=== PATIENT | male | born 1940 | race Caucasian/White ===

== ENCOUNTER 2023-06-15 14:48 | Outpatient (AMB) | payer MEDICARE, SELFPAY ==
--- NOTE | 2023-06-15 14:56 | MHC.OFFVIS ---
Intake Vital Signs 06/15/23 14:58 Height 5 ft 11 in Weight 175 lb BMI 24.4 BP 116/68 Blood Pressure Location Lt brachial Position Sitting Pulse 104 H Pulse Source Pulse Oximeter Pulse Oximetry (%) 96 Oxygen Delivery Method Room Air Intake Visit Reasons: Asthma Checkroom Chief Required: No Organic Chemistry Teacher: Organic Chemistry Teacher offered & declined Accompanied by: home energy inspector Allergies Penicillins Allergy (Severe, Verified 06/15/23 15:07) unknown peanuts Allergy (Severe, Uncoded 06/15/23 15:07) Anaphylaxis HPI Asthma HPI Details Jose is a pleasant 83 year old male, never smoker, with underlying asthma since childhood, prostate cancer s/p prostatectomy and bilateral orchiectomy 2007 and chronic alcoholism in remission since 2020. He was referred by PCP for pulmonary evaluation for worsening asthma control. He reports progressively worsening dyspnea on minimal exertion and has been using albuterol multiple times per day with partial relief. He has been on advair 500 for years and feels is no longer beneficial. He has been using a pulse oximeter and getting readings in the low 80s at rest. He reports being admitted to [facility] last year being discharged on supplemental oxygen but was discontinued shortly after discharge, unclear reasoning. Over the last three weeks he reports worsening orthopnea, having to sleep in his recliner. His aide reports more prevalent BLE. He denies PND. He denies any chest pain, palpitations or prior cardiac conditions. He does attribute some of his dyspnea to increased anxiety. He was admitted to [facility] and discharged on 06/12 with a course of prednisone, however has had issues obtaining from pharmacy and will be starting tonight. Chest CTA unremarkable. He denies any occupational exposures. He reports mild seasonal allergies. Denies any pertinent family history. [facility] Social History (Updated 06/15/23 @ 15:09 by Mis Barajas LPN) Patient Tobacco Use Status: Never used Tobacco Smoked in Last 30 Days: No Review of Systems Const Denies chills, Denies excessive sweating, Denies fever(s), Denies headache(s) and Denies night sweats Eyes Denies dry eyes, Denies irritation and Denies itchy eyes ENT Reports Normal hearing present, Denies headache(s), Denies nasal congestion, Denies nasal discharge, Denies post nasal drip and Denies sore throat Card Denies chest pain, Denies chest pain at rest, Denies chest pain with activity, Denies claudication, Denies leg edema, Denies palpitations, Reports dyspnea, Reports dyspnea on exertion, Reports orthopnea and Denies paroxysmal nocturnal dyspnea Resp Denies chest congestion, Reports cough (intermittent dry cough), Denies excessive phlegm production, Denies pain on inspiration, Denies pain with cough, Reports dyspnea, Reports dyspnea on exertion, Denies stridor and Denies wheezing Musc Denies myalgias Neuro Reports Normal hearing present and Denies headache(s) Endo Denies excessive sweating and Denies palpitations Joseph/Lymph Denies lymphadenopathy Aller/Immun Denies itchy eyes, Denies seasonal rhinorrhea and Denies wheezing Physical Exam Vital Signs: Last Vital Signs Pulse 104 H 06/15/23 14:58 BP 116/68 06/15/23 14:58 Pulse Ox 96 06/15/23 14:58 Oxygen Delivery Method Room Air 06/15/23 14:58 BMI result Body Mass Index 24.4 Const General: cooperative, comfortable, no acute distress and alert Nutritional Appearance: thin Orientation/consciousness: patient oriented x3 Limitations: no limitations HEENT Head: Yes normal to inspection, Yes normocephalic and Yes atraumatic Ears: hearing grossly normal bilaterally and external ears normal Eyes General: appearance normal, both eyes and all related structures Eyelids: Yes eyelids normal Sclerae: sclerae normal EOM: EOMs intact bilaterally Neck Neck: Yes normal visual inspection and Yes no lymphadenopathy Lymphatic: no lymphadenopathy noted Chest Chest palpation & inspection: normal inspection of the chest Resp Other: diminished lung sounds bilaterally Effort & Inspection: normal respiratory effort, able to speak in complete sentences, no audible wheezes, no cough, no stridor, not tachypneic, no tripod positioning and no use of accessory muscles Auscultation: no wheezes Cardio Jugular venous distension: no JVD Rate: regular rate Rhythm: regular rhythm Skin Other: warm, dry General skin exam: no rashes or lesions noted Neuro General: patient oriented x3 Cranial nerves: Yes Normal hearing present Cognition (Neuro): normal cognition Gait exam (Neuro): Normal gait present Extrem Other: 1+ BLE, L>R General: Yes normal to inspection, Yes capillary refill normal, Yes no clubbing, cyanosis or edema and Yes no pedal edema Psych Appearance: grossly normal and well kempt Speech and movement: Normal speech and movement present and Clear speech present Affect: normal affect Attitude: cooperative Thought process: Normal thought process present Thought content: Normal thought content present Insight: Good insight present (Psych) Judgement: Good judgement present (Psych) Office Procedures 6 Minute Walk Time:: 15:35 SPO2 % at rest: 93 Pulse at rest: 100 SPO2 % during excercise: 93 Pulse during excercise: 138 SPO2 % after excercise: 96 Pulse after excercise: 111 Distance in yards walked: 250 Bhavana Score: 8 Performance Observations:: Patient walked without assistance on flat ground. After approx 200 yards O2 saturation maintained at 93% but pulse rate was up to 138 and patient was tired with shortness of breath. Patient sat and rested for 2-3 minutes. O2 saturation 96% and pulse rate 112.Walk resumed and after approx 50 yards O2 saturation was 95% and pulse rate 128. Patient was tired and felt short of breath. Unable to resume walk. Patient did not meet the criteria for supplemental O2. 47729 - 6 Minute Walk Assessment & Plan Assessment & Plan (1) Asthma: Code(s): J45.909 - Unspecified asthma, uncomplicated (2) Dyspnea: Code(s): R06.00 - Dyspnea, unspecified Plan Edward's symptoms are likely multifactorial with contribution from pulmonary, cardiac and deconditioning etiologies. Will switch Advair to Trelegy. Inhaler technique reviewed. 6MWT performed and patient maintained adequate oxygen saturation, however became tachycardic, max 138, reporting labored breathing. Will send for echo given tachycardia with 6MWT, BLE on exam and worsening orthopnea. Will consider spirometry at next visit, if patient able to perform. All questions were answered and patient is in agreement of plan. Will follow up after echo to review results and response to Trelegy. Orders: Orders CA echo transthoracic complete Today R06.00 - Dyspnea, unspecified AMB 6 minute walk Today R06.00 - Dyspnea, unspecified Medications: New cizhpqizwar-hytxuveka-weuccrnw 200-62.5-25 mcg (Trelegy Ellipta) 1 inh inhalation DAILY 60 ea 3RF Coding Level of Care Code New Pt Level 4 (61747) Diagnoses Asthma J45.909 Dyspnea R06.00 CPT Codes Coding ([id number])
[2023-06-15 14:58] VITALS: BP 116/68; PULSE 104; O2SAT 96; BMI 24.4
[2023-06-15 16:22] VITALS: PULSE 100; O2SAT 93
== END 2023-06-15 16:24 | disposition home or self-care (01) ==
PROVIDERS: PCP Nurse Practitioner Primary Care; Referring Provider Nurse Practitioner Primary Care; Visit Provider Nurse Practitioner Family
DX: J45.909 Unspecified asthma, uncomplicated (principal); R06.00 Dyspnea, unspecified
CPT/HCPCS: 94618; 99204

== ENCOUNTER → 2023-06-15 14:48 | Outpatient (BNVA) | payer MEDICARE, SELFPAY | PROVIDERS: PCP Nurse Practitioner Primary Care; Referring Provider Nurse Practitioner Primary Care; Visit Provider Nurse Practitioner Family | DX: J45.909 Unspecified asthma, uncomplicated (principal); R06.00 Dyspnea, unspecified | CPT/HCPCS: 94618; 99202 ==

== ENCOUNTER → 2023-07-04 12:29 | Outpatient (REF) | payer MEDICARE, SELFPAY ==
--- NOTE | 2023-07-04 12:42 | CA_ITS ---
Transthoracic Echocardiogram Patient (Last, First, Middle): Jose Jacob E Gender: Male Date of : 1940 Age: 83 Procedure Date: 07/04/2023 Procedure Type: Transthoracic Echocardiogram Location: OP Height: 180.34 cm Weight: 79.38 kg BSA: 1.99 m2 Heart Rate: 93 bpm BP: 118 / 70 mmHg Internet Programmer: SB Referring MD: Bailee Jacobsen NP Symptoms: R06.00 - Dyspnea, unspecified Study Quality: Fair but adequate ECG Rhythm: Sinus Conclusions: - The left ventricular systolic function is normal. The calculated ejection fraction is 65% by biplane method. - No obvious valvular pathology seen on this study. - There is no evidence of pulmonary hypertension. - There is mild dilatation of the ascending aorta measuring 4.00 cm. Findings Procedure Information The quality of the study was fair. The study quality is limited by lung artifact. Left Ventricle Normal left ventricular cavity size. There is normal left ventricular wall thickness. The left ventricular systolic function is normal. The calculated ejection fraction is 65% by biplane method. There is no evidence of regional wall motion abnormalities. Diastolic function is normal for age. Right Ventricle Mildly increased right ventricular cavity size. There is normal right ventricular systolic function. Atria Both atria are normal in size. Aortic Valve There is a normal trileaflet aortic valve. There is no aortic valve stenosis. There is no aortic valve regurgitation. Mitral Valve There is mild anterior mitral leaflet thickening. There is no mitral valve regurgitation. There is no mitral valve stenosis. Pulmonic Valve The pulmonic valve is likely normal. Tricuspid Valve There is trace tricuspid valve regurgitation. There is no evidence of pulmonary hypertension. Great Vessels There is mild dilatation of the ascending aorta measuring 4.00 cm. Small plaque is seen in the sino tubular ridge. Prior Study Comparison No prior study available for comparison. Recommendations, Care & Conclusions No obvious valvular pathology seen on this study. Measurements 2D Linear Measurements IVSd: 0.88 0.6-0.9/0.6-1.0 cm LVIDd: 4.28 3.9-5.3/4.2-5.9 cm LVIDd Index: 2.15 2.4-3.2/2.2-3.1 cm/m2 LVIDs: 2.73 2.0-3.6 cm LVPWd: 0.79 0.7-1.1 cm LA Diam: 3.00 2.7-3.8/3.0-4.0 cm LAIDs Index: 1.51 1.5-2.3 cm/m2 LV Mass: 137.86 67-162/88-224 g LV Mass Index: 69.28 43-95/49-115 g/m2 LVOT Diam: 2.20 3.0+(-)1.3 cm 2D Systolic Function EF 4C: 51.10 >55% EF 2C: 76.00 >55% EF BiP: 64.90 >55% Mitral Valve MV Pk E: 0.54 MV PK A: 1.03 MV Decel Time: 132.00 E/A: 0.50 E'Lateral: 5.11 E'Medial: 7.18 E/E' Med: 7.60 E/E' Lat: 10.60 PHT: 39.00 MVA PHT: 5.64 Decel [place]: 4.12 Aortic Valve AoV Pk Jp: 1.02 AoV Pk Grad: 4.00 ROSANA: 3.51 LVOT LVOT Pk Jp: 0.99 LVOT Mn Jp: 0.63 LVOT VTI: 0.16 LVOT Pk Grad: 4.00 LVOT Mn Grad: 2.00 LVOT Diam: 2.20 LVOT Area: 3.80 Diastolic Function MV Pk E: 0.54 MV Pk A: 1.03 E/A: 0.50 E'Medial: 7.18 E/E' Med: 7.60 E' Laterial: 5.11 E/E' Lat: 10.60 Right Ventricle TAPSE (mm): 20.30 TVS' Jp: 14.30 Tricuspid Valve TR Pk Jp: 2.57 TR Pk Grad: 26.00 Great Vessels Aorta Sinus of Valsalva: 4.10 2.0-3.5 cm Ao Asc: 4.00 2.1-3.4 cm Pulmonary Valve PV Pk Jp: 0.76 Peak PV Grad: 2.00 Updated in Other Vendor System with Status of Final Bran Guerrero MD electronically signed on 07/05/2023 2:49:19 PM with status of Final
== END ==
LOC: HO.CARD 12:29
PROVIDERS: PCP Nurse Practitioner Primary Care; Visit Provider Nurse Practitioner Family
DX: R06.00 Dyspnea, unspecified (principal)
CPT/HCPCS: 93306

== ENCOUNTER → 2023-07-04 12:42 | Outpatient (BNV) | payer MEDICARE, SELFPAY | PROVIDERS: PCP Nurse Practitioner Primary Care; Visit Provider Internal Medicine | DX: I34.89 Other nonrheumatic mitral valve disorders (principal); R06.00 Dyspnea, unspecified | CPT/HCPCS: 93306 ==

== ENCOUNTER 2023-07-19 09:32 | Outpatient (AMB) | payer MEDICARE, SELFPAY ==
[2023-07-19 09:43] VITALS: BP 120/70; PULSE 99; O2SAT 94; BMI 25.0
--- NOTE | 2023-07-19 09:43 | A.OFFVIS_ITS ---
Intake Vital Signs 07/19/23 09:43 Height 5 ft 11 in Weight 179 lb BMI 25.0 BP 120/70 Blood Pressure Location Lt brachial Position Sitting Pulse 99 Pulse Source Pulse Oximeter Pulse Oximetry (%) 94 Oxygen Delivery Method Room Air Intake Visit Reasons: dyspnea: echo results Library Technician Required: No Beauty School Instructor: Beauty School Instructor offered & declined Accompanied by: head of strategy Allergies Penicillins Allergy (Severe, Verified 07/19/23 09:48) unknown peanuts Allergy (Severe, Uncoded 07/19/23 09:48) Anaphylaxis Medication List - Last Reconciled 07/19/23 by Mis Barajas LPN nfqoezunapk-shetcuauz-hcmymkry 200-62.5-25 mcg (Trelegy Ellipta) 1 inh inhalation DAILY lorazepam 0.5 mg PO BID PRN HPI dyspnea: echo results HPI Details Jose is a pleasant 83 year old male, never smoker, with underlying asthma since childhood, prostate cancer s/p prostatectomy and bilateral orchie ctomy 2007 and chronic alcoholism in remission since 2020. He was referred by PCP for pulmonary evaluation for worsening asthma control. At the last visit, he was switched from Advair to Trelegy and reports minimal use of albuterol. He denies cough, wheezing or chest tightness. He continues to report dyspnea on exertion. Today he presents to review results of echo. [facility] Social History (Updated 07/19/23 @ 09:50 by Mis Barajas LPN) Patient Tobacco Use Status: Never used Tobacco Review of Systems Const Denies chills, Denies excessive sweating, Denies fever(s), Denies headache(s) and Denies night sweats Eyes Denies dry eyes, Denies irritation and Denies itchy eyes ENT Reports Normal hearing present, Denies headache(s), Denies nasal congestion, Denies nasal discharge, Denies post nasal drip and Denies sore throat Card Denies chest pain, Denies chest pain at rest, Denies chest pain with activity, Denies claudication, Denies leg edema, Denies orthopnea and Denies paroxysmal nocturnal dyspnea Resp Denies chest congestion, Denies cough, Denies excessive phlegm production, Denies pain on inspiration, Denies pain with cough and Denies stridor Musc Denies myalgias Neuro Reports Normal hearing present and Denies headache(s) Endo Denies excessive sweating Joseph/Lymph Denies lymphadenopathy Aller/Immun Denies itchy eyes and Denies seasonal rhinorrhea Physical Exam Vital Signs: Last Vital Signs Pulse 99 07/19/23 09:43 BP 120/70 07/19/23 09:43 Pulse Ox 94 07/19/23 09:43 Oxygen Delivery Method Room Air 07/19/23 09:43 BMI result Body Mass Index 25.0 Const General: cooperative, healthy appearing, comfortable, no acute distress, well developed and alert Orientation/consciousness: patient oriented x3 Limitations: no limitations HEENT Head: Yes normal to inspection, Yes normocephalic and Yes atraumatic Ears: hearing grossly normal bilaterally and external ears normal Eyes General: appearance normal, both eyes and all related structures Eyelids: Yes eyelids normal Sclerae: sclerae normal EOM: EOMs intact bilaterally Neck Neck: Yes normal visual inspection and Yes no lymphadenopathy Lymphatic: no lymphadenopathy noted Chest Chest palpation & inspection: normal inspection of the chest Resp Other: faint expiratory wheezes throughout Effort & Inspection: normal respiratory effort, able to speak in complete sentences, no audible wheezes, no cough, no stridor, not tachypneic, no tripod positioning and no use of accessory muscles Cardio Jugular venous distension: no JVD Rate: regular rate Rhythm: regular rhythm Skin Other: warm, dry General skin exam: no rashes or lesions noted Neuro General: patient oriented x3 Cranial nerves: Yes Normal hearing present Cognition (Neuro): normal cognition Gait exam (Neuro): Normal gait present Extrem General: Yes normal to inspection, Yes capillary refill normal, Yes no clubbing, cyanosis or edema and Yes no pedal edema Psych Appearance: grossly normal and well kempt Speech and movement: Normal speech and movement present and Clear speech present Affect: normal affect Attitude: cooperative Thought process: Normal thought process present Thought content: Normal thought content present Insight: Good insight present (Psych) Judgement: Good judgement present (Psych) Results Reviewed Results Reviewed: [address] [address] Cardiology Report Signed Patient: Jose Jacob MR#: [id number] : 1940 Acct:[id number] Age/Sex: 83 / M ADM Date: 07/04/23 Loc: HO.CARD Attending Dr: Bailee Jacobsen CREATIVE SERVICES MANAGER Ordering Physician: Bailee Jacobsen NP Date of Service: 07/04/23 Procedure(s): CA echo transthoracic complete Accession Number(s): cc: Bailee Jacobsen CREATIVE SERVICES MANAGER~ Transthoracic Echocardiogram Patient (Last, First, Middle): Jose Jacob E Gender: Male Date of : 1940 Age: 83 Procedure Date: 07/04/2023 Procedure Type: Transthoracic Echocardiogram Location: OP Height: 180.34 cm Weight: 79.38 kg BSA: 1.99 m2 Heart Rate: 93 bpm BP: 118 / 70 mmHg Stoker Erector: HILDA Referring MD: Bailee Jacobsen NP Symptoms: R06.00 - Dyspnea, unspecified Study Quality: Fair but adequate ECG Rhythm: Sinus Conclusions: - The left ventricular systolic function is normal. The calculated ejection fraction is 65% by biplane method. - No obvious valvular pathology seen on this study. - There is no evidence of pulmonary hypertension. - There is mild dilatation of the ascending aorta measuring 4.00 cm. Findings Procedure Information The quality of the study was fair. The study quality is limited by lung artifact. Left Ventricle Normal left ventricular cavity size. There is normal left ventricular wall thickness. The left ventricular systolic function is normal. The calculated ejection fraction is 65% by biplane method. There is no evidence of regional wall motion abnormalities. Diastolic function is normal for age. Right Ventricle Mildly increased right ventricular cavity size. There is normal right ventricular systolic function. Atria Both atria are normal in size. Aortic Valve There is a normal trileaflet aortic valve. There is no aortic valve stenosis. There is no aortic valve regurgitation. Mitral Valve There is mild anterior mitral leaflet thickening. There is no mitral valve regurgitation. There is no mitral valve stenosis. Pulmonic Valve The pulmonic valve is likely normal. Tricuspid Valve There is trace tricuspid valve regurgitation. There is no evidence of pulmonary hypertension. Great Vessels There is mild dilatation of the ascending aorta measuring 4.00 cm. Small plaque is seen in the sino tubular ridge. Prior Study Comparison No prior study available for comparison. Recommendations, Care & Conclusions No obvious valvular pathology seen on this study. Measurements 2D Linear Measurements IVSd: 0.88 0.6-0.9/0.6-1.0 cm LVIDd: 4.28 3.9-5.3/4.2-5.9 cm LVIDd Index: 2.15 2.4-3.2/2.2-3.1 cm/m2 LVIDs: 2.73 2.0-3.6 cm LVPWd: 0.79 0.7-1.1 cm LA Diam: 3.00 2.7-3.8/3.0-4.0 cm LAIDs Index: 1.51 1.5-2.3 cm/m2 LV Mass: 137.86 67-162/88-224 g LV Mass Index: 69.28 43-95/49-115 g/m2 LVOT Diam: 2.20 3.0+(-)1.3 cm 2D Systolic Function EF 4C: 51.10 >55% EF 2C: 76.00 >55% EF BiP: 64.90 >55% Mitral Valve MV Pk E: 0.54 MV PK A: 1.03 MV Decel Time: 132.00 E/A: 0.50 E'Lateral: 5.11 E'Medial: 7.18 E/E' Med: 7.60 E/E' Lat: 10.60 PHT: 39.00 MVA PHT: 5.64 Decel [place]: 4.12 Aortic Valve AoV Pk Jp: 1.02 AoV Pk Grad: 4.00 ROSANA: 3.51 LVOT LVOT Pk Jp: 0.99 LVOT Mn Jp: 0.63 LVOT VTI: 0.16 LVOT Pk Grad: 4.00 LVOT Mn Grad: 2.00 LVOT Diam: 2.20 LVOT Area: 3.80 Diastolic Function MV Pk E: 0.54 MV Pk A: 1.03 E/A: 0.50 E'Medial: 7.18 E/E' Med: 7.60 E' Laterial: 5.11 E/E' Lat: 10.60 Right Ventricle TAPSE (mm): 20.30 TVS' Jp: 14.30 Tricuspid Valve TR Pk Jp: 2.57 TR Pk Grad: 26.00 Great Vessels Aorta Sinus of Valsalva: 4.10 2.0-3.5 cm Ao Asc: 4.00 2.1-3.4 cm Pulmonary Valve PV Pk Jp: 0.76 Peak PV Grad: 2.00 Updated in Other Vendor System with Status of Final Bran Guerrero MD electronically signed on 07/05/2023 2:49:19 PM with status of Final Dictated By: Bran Guerrero MD Signed By: <Electronically signed by Bran Guerrero MD in OV> 07/05/23 1449 DD/ 1302 TD/TT: Pet Caretaker: Assessment & Plan Assessment & Plan (1) Asthma: Code(s): J45.909 - Unspecified asthma, uncomplicated (2) Dyspnea: Code(s): R06.00 - Dyspnea, unspecified Plan Edward has had significant improvements overall using Trelegy. Advised to continue. On exam today, faint wheezing appreciated, will send in prednisone. Patient is aware if symptoms increase to call office. We discussed spirometry but patient deferred at this time. Reviewed echo which revealed LVEF 65%, no obvious valvular pathology or evidence of pulmonary hypertension. There was however mild dilatation of the ascending aorta measuring 4 cm , will enter vascular referral. All questions were answered and patient is in agreement of plan. Will follow up in three months or sooner if needed. Orders: Referrals Vascular Surgery Referral I77.819 - Aortic ectasia, unspecified site Medications: New prednisone 40 mg (2 x 20 mg) PO DAILY 10 tabs 0RF Refilled zjmowkvzohb-nzzxfxmqz-dwuyegog 200-62.5-25 mcg (Trelegy Ellipta) 1 inh inhalation DAILY 60 ea 3RF Coding Level of Care Code Est Pt Level 4 (59506) Diagnoses Asthma J45.909 Dyspnea R06.00
== END 2023-07-19 10:19 | disposition home or self-care (01) ==
PROVIDERS: PCP Nurse Practitioner Primary Care; Visit Provider Nurse Practitioner Family
DX: J45.909 Unspecified asthma, uncomplicated (principal); R06.00 Dyspnea, unspecified
CPT/HCPCS: 99214

== ENCOUNTER → 2023-07-19 09:32 | Outpatient (BNVA) | payer MEDICARE, SELFPAY | PROVIDERS: PCP Nurse Practitioner Primary Care; Visit Provider Nurse Practitioner Family | DX: J45.909 Unspecified asthma, uncomplicated (principal); R06.00 Dyspnea, unspecified | CPT/HCPCS: 99212 ==

== ENCOUNTER 2023-10-19 10:02 | Outpatient (AMB) | payer MEDICARE, SELFPAY ==
[2023-10-19 10:21] VITALS: BP 120/68; PULSE 94; O2SAT 98; BMI 25.8
--- NOTE | 2023-10-19 10:21 | MHC.OFFVIS ---
Vital Signs 10/19/23 10:21 Height 5 ft 11 in Weight 185 lb BMI 25.8 BP 120/68 Blood Pressure Location Lt brachial Position Sitting Pulse 94 Pulse Source Monitor Pulse Oximetry (%) 98 Oxygen Delivery Method Room Air Intake Visit Reasons: NPV/Aortic ectasia Allergies Penicillins Allergy (Severe, Verified 07/19/23 09:48) unknown peanuts Allergy (Severe, Uncoded 07/19/23 09:48) Anaphylaxis Medication List - Last Reconciled 10/19/23 by Bran Guerrero MD albuterol sulfate 90 mcg/actuation inhalation fluoxetine 10 mg PO DAILY qasvyyjcqwp-ttymolroa-quukqkzu 200-62.5-25 mcg (Trelegy Ellipta) 1 inh inhalation DAILY levothyroxine 75 mcg PO DAILY lorazepam 0.5 mg PO BID PRN HPI Comments Details: Jose has been referred because of finding of mild ascending aortic dilatation. Patient himself denies any cardiac history including coronary disease or myocardial infarction or cardiomyopathy or in fact any other cardiac issues. He states that he gets short of breath with activity. He does have a history of asthma but he states he feels this is different. No clear-cut anginal-type symptoms. REPLACED BY [facility] Family History (Updated 10/19/23 @ 10:39 by Bran Guerrero MD) Father No problems noted. Mother No problems noted. Social History (Updated 10/19/23 @ 10:38 by Bran Guerrero MD) Alcohol intake: former Patient Tobacco Use Status: Never used Tobacco Review of Systems Const Denies weakness ENT Denies dizziness Card Denies chest pain, Denies chest pain with activity, Denies syncope, Denies rapid heart rate, Denies pedal edema, Denies edema, Denies leg edema, Denies lightheadedness, Denies palpitations, Denies dyspnea, Denies dyspnea on exertion and Denies orthopnea Resp Denies cough, Denies dyspnea and Denies dyspnea on exertion GI Denies hematochezia and Denies change in stool character Musc Denies abnormal gait, Denies muscle cramps, Denies muscle weakness, Denies numbness, Denies radiating pain into limb and Denies tingling Neuro Denies abnormal gait, Denies dizziness, Denies syncope, Denies numbness, Denies tingling and Denies weakness Endo Denies palpitations Physical Exam Vital Signs: Last Vital Signs Pulse 94 10/19/23 10:21 BP 120/68 10/19/23 10:21 Pulse Ox 98 10/19/23 10:21 Oxygen Delivery Method Room Air 10/19/23 10:21 BMI result Body Mass Index 25.8 Const General: comfortable and no acute distress Orientation/consciousness: patient oriented x3 HEENT Other: Unremarkable Head: Yes normal to inspection Neck Neck: Yes normal visual inspection Chest Chest palpation & inspection: normal inspection of the chest Resp Auscultation: clear to auscultation bilaterally Cardio Palpation: normal PMI Heart sounds: S1 normal heart sound present, S2 normal heart sound present, no gallops, no murmurs and no rubs GI Palpation (GI): Soft to palpation Back/Spine/Pelvis Other: unremarkable Skin General skin exam: no rashes or lesions noted Neuro General: patient oriented x3 Extrem General: Yes normal to inspection Psych Mental Status: mental status grossly normal Office Procedures EKG Details: EKG with sinus rhythm at 94/Min; incomplete right bundle-branch block; right ventricular hypertrophy/repolarization changes. Inverted T-waves in the inferior leads, possible ischemia [id number], Complete Assessment & Plan Assessment & Plan (1) Dyspnea: Code(s): R06.00 - Dyspnea, unspecified Category: Medical Plan: Due to EKG abnormalities, we can get a stress test. Highly unlikely to exercise on the treadmill. Hence do pharmacological stress test with Lexiscan. (2) Aortic dilatation: Code(s): I77.819 - Aortic ectasia, unspecified site Category: Medical Plan: Mild dilatation at 4 cm. Okay to recheck in 1-2 years for measurement. At his age, unlikely that he will ever be a candidate for any interventions even if it gets markedly enlarged. Orders: Orders CA lexiscan stress w jaya Today I20.9 - Angina pectoris, unspecified NM cardiolite stress test Today R07.2 - Precordial pain Coding Level of Care Code New Pt Level 4 (72650) Diagnoses Dyspnea R06.00 Aortic dilatation I77.819 CPT Codes EKG - CPT: 65875-Bvedufbbvhplbqaxb, Complete ([id number])
== END 2023-10-19 10:51 | disposition home or self-care (01) ==
PROVIDERS: PCP Nurse Practitioner Primary Care; Visit Provider Internal Medicine
DX: R06.00 Dyspnea, unspecified (principal); I77.810 Thoracic aortic ectasia; R94.31 Abnormal electrocardiogram [ECG] [EKG]
CPT/HCPCS: 93010; 99214

== ENCOUNTER → 2023-10-19 10:02 | Outpatient (BNVA) | payer MEDICARE, SELFPAY | PROVIDERS: PCP Nurse Practitioner Primary Care; Visit Provider Internal Medicine | DX: I77.819 Aortic ectasia, unspecified site (principal); R06.00 Dyspnea, unspecified; R94.31 Abnormal electrocardiogram [ECG] [EKG]; I51.7 Cardiomegaly; I45.10 Unspecified right bundle-branch block | CPT/HCPCS: 93005; 99212 ==

== ENCOUNTER 2023-10-26 09:48 | Outpatient (AMB) | payer MEDICARE, SELFPAY ==
--- NOTE | 2023-10-26 09:49 | A.OFFVIS_ITS ---
Vital Signs 10/26/23 09:52 Height 5 ft 11 in Weight 185 lb 8 oz BMI 25.9 BP 114/68 Blood Pressure Location Rt brachial Position Sitting Pulse 91 Pulse Source Pulse Oximeter Pulse Oximetry (%) 91 L Oxygen Delivery Method Room Air Intake Visit Reasons: 3 month f/u Allergies Penicillins Allergy (Severe, Verified 10/26/23 09:54) unknown peanuts Allergy (Severe, Uncoded 10/26/23 09:54) Anaphylaxis HPI HPI 3 month f/u: Details: Jose is a pleasant 83 year old male, never smoker, with underlying asthma since childhood, prostate cancer s/p prostatectomy and bilateral orchiectomy 2007 and chronic alcoholism in remission since 2020. He was referred by PCP for pulmonary evaluation for worsening asthma control. He reports moderate control with Trelegy and albuterol MDI. He reports infrequent use of albuterol. He does continue to report dyspnea on exertion and is undergoing cardiac evaluat ion, upcoming stress test scheduled next month. Since last he denies any urgent care visits or hospitalizations. Today he presents for routine follow-up. [facility] Family History (Updated 10/19/23 @ 10:39 by Bran Guerrero MD) Father No problems noted. Mother No problems noted. Social History Alcohol intake: former Patient Tobacco Use Status: Never used Tobacco Review of Systems Const Denies chills, Denies excessive sweating, Denies fever(s), Denies headache(s) and Denies night sweats Eyes Denies dry eyes, Denies irritation and Denies itchy eyes ENT Reports Normal hearing present, Denies headache(s), Denies nasal congestion, Denies nasal discharge, Denies post nasal drip and Denies sore throat Card Denies chest pain, Denies chest pain at rest, Denies chest pain with activity, Denies claudication, Denies leg edema, Denies orthopnea and Denies paroxysmal nocturnal dyspnea Resp Denies chest congestion, Denies cough, Denies excessive phlegm production, Denies pain on inspiration, Denies pain with cough and Denies stridor Musc Denies myalgias Neuro Reports Normal hearing present and Denies headache(s) Endo Denies excessive sweating Joseph/Lymph Denies lymphadenopathy Aller/Immun Denies itchy eyes and Denies seasonal rhinorrhea Physical Exam Vital Signs: Last Vital Signs Pulse 91 10/26/23 09:52 BP 114/68 10/26/23 09:52 Pulse Ox 91 L 10/26/23 09:52 Oxygen Delivery Method Room Air 10/26/23 09:52 BMI result Body Mass Index 25.9 Const General: cooperative, healthy appearing, comfortable, no acute distress, well developed and alert Orientation/consciousness: patient oriented x3 Limitations: no limitations HEENT Head: Yes normal to inspection, Yes normocephalic and Yes atraumatic Ears: hearing grossly normal bilaterally and external ears normal Eyes General: appearance normal, both eyes and all related structures Eyelids: Yes eyelids normal Sclerae: sclerae normal EOM: EOMs intact bilaterally Neck Neck: Yes normal visual inspection and Yes no lymphadenopathy Lymphatic: no lymphadenopathy noted Chest Chest palpation & inspection: normal inspection of the chest Resp Effort & Inspection: normal respiratory effort, able to speak in complete sentences, no audible wheezes, no cough, no stridor, not tachypneic, no tripod positioning and no use of accessory muscles Auscultation: no crackles, no rhonchi, no wheezes and diminished lung sounds Cardio Jugular venous distension: no JVD Rate: regular rate Rhythm: regular rhythm Skin Other: warm, dry General skin exam: no rashes or lesions noted Neuro General: patient oriented x3 Cranial nerves: Yes Normal hearing present Cognition (Neuro): normal cognition Gait exam (Neuro): Normal gait present Extrem General: Yes normal to inspection, Yes capillary refill normal, Yes no clubbing, cyanosis or edema and Yes no pedal edema Psych Appearance: grossly normal and well kempt Speech and movement: Normal speech and movement present and Clear speech present Affect: normal affect Attitude: cooperative Thought process: Normal thought process present Thought content: Normal thought content present Insight: Good insight present (Psych) Judgement: Good judgement present (Psych) Office Procedures 6 Minute Walk Time:: 10:26 SPO2 % at rest: 92 Pulse at rest: 91 SPO2 % during excercise: 92 Pulse during excercise: 135 SPO2 % after excercise: 94 Pulse after excercise: 112 Distance in yards walked: 200 Bhavana Score: 8 Performance Observations:: Patient walked unassisted on level ground slowly. He reports he tires easily while walking and gets short of breath. After approx 3 minutes patient was short of breath and O2 saturation was 92% with pulse rate of 135. Patient needed to stop and rest for a minute..O2 saturation recovered to 94% and pulse to 110. Resumed walk for another minute and O2 sat was 93% and pulse rate to 138. Patient feels shortness of breath and tired. Walk stopped. Patient did not qualify for O2 . [address]00 - 6 Minute Walk Assessment & Plan Assessment & Plan (1) Asthma: Code(s): J45.909 - Unspecified asthma, uncomplicated Category: Medical (2) Dyspnea: Code(s): R06.00 - Dyspnea, unspecified Category: Medical Plan Edward reports moderate control with Trelegy. Advised to continue use and will also send an albuterol for nebulizer. Upon arrival to exam room patient's oxygen saturation was 91%. 6MWT was performed and patient does not need supplemental oxygen at this time. He has an upcoming stress test scheduled with cardiology after abnormal EKG, he may have a cardiac component to dyspnea. Will follow-up in 3 months or sooner if needed. All questions were answered and lisha douglas is in agreement of plan. Orders: Orders AMB 6 minute walk Today J45.909 - Unspecified asthma, uncomplicated, R06.00 - Dyspnea, unspecified Coding Level of Care Code Est Pt Level 4 (67489) Diagnoses Asthma J45.909 Dyspnea R06.00 CPT Codes Coding ([id number])
[2023-10-26 09:52] VITALS: BP 114/68; PULSE 91; O2SAT 91; BMI 25.9
[2023-10-26 10:56] VITALS: PULSE 91; O2SAT 92
== END 2023-10-26 11:00 | disposition home or self-care (01) ==
PROVIDERS: PCP Nurse Practitioner Primary Care; Visit Provider Nurse Practitioner Family
DX: J45.909 Unspecified asthma, uncomplicated (principal); R06.00 Dyspnea, unspecified
CPT/HCPCS: 94618; 99214

== ENCOUNTER → 2023-10-26 09:48 | Outpatient (BNVA) | payer MEDICARE, SELFPAY | PROVIDERS: PCP Nurse Practitioner Primary Care; Visit Provider Nurse Practitioner Family | DX: J45.909 Unspecified asthma, uncomplicated (principal); R06.00 Dyspnea, unspecified; F10.21 Alcohol dependence, in remission | CPT/HCPCS: 94618; 99212 ==

== ENCOUNTER → 2023-12-05 09:54 | Outpatient (REF) | payer MEDICARE, SELFPAY ==
--- NOTE | ~2023-12-05 | NM_ITS ---
Lexiscan Myocardial perfusion study Indication: Abnormal EKG, shortness of breath Technique: The patient was brought in for a Lexiscan perfusion study on 12/05/2023 and was injected 0.4 mg of Lexiscan intravenously. Within a minute of this injection 30 mCi of sestamibi was given intravenously. Images were obtained using the SPECT gamma camera interlaced with the gating device. Images were obtained in supine position. Resting perfusion study was performed on 12/06/2023. Patient was administered 30 mCi of sestamibi intravenously at rest. Images were then obtained in supine position. Images were processed with the software and compared side to side in short axis, horizontal long axis and vertical long axis views. Total DLP 90mGy-cm. Findings: Raw acquisition reviewed. The stress perfusion study showed no significant perfusion abnormality. Both uncorrected as well as CT attenuation corrected images were reviewed. The gated study shows normal LV systolic function with calculated LVEF of > 70%. LV cavity is normal in size. The gated study shows normal wall thickening and contraction of segments. Resting study shows no significant perfusion abnormality. Gating at rest reveals normal wall motion with ejection fraction at 72%. The findings are consistent with no clear reversible or fixed perfusion abnormality. NM/NM cardiolite stress test Impression: 1. Myocardial perfusion imaging study shows likely normal myocardial perfusion. 2. Gated LVEF is > 70% during stress and rest. 3. Transient ischemic dilatation not present. EKG component of the test reported separately.
--- NOTE | 2023-12-05 09:58 | CA_ITS ---
Acquisition Time: 2023-12-05 10:14:11 Total Exercise Time: 00:02:00 Test Indications: Abnormal ECG Medications: Protocol: LEXISCAN Max HR: 107 BPM 79% of Pred: 135 BPM Max BP: 116/074 mmHG Max Work Load: 1.0 METS Pharmacoligcal stress test with Lexiscan injection while sirtting and marching in place, without anginal symptoms, without arrhythmias, with normotensive resposne to injection, with nondiagnoisitic EKGs. Aminophylline 75mg IVP given to reverse Lexiscan. Nuclear images pending. Test reviewed with Dr. Altman Referred By: Bran Guerrero Overread By: Oralia Childers
== END ==
LOC: HO.CARD 09:54
PROVIDERS: PCP Nurse Practitioner Primary Care; Visit Provider Internal Medicine
DX: R07.2 Precordial pain (principal); I20.9 Angina pectoris, unspecified
CPT/HCPCS: 78452; 93017; A9500; J0280; J2785

== ENCOUNTER → 2023-12-05 09:58 | Outpatient (BNV) | payer MEDICARE, SELFPAY | PROVIDERS: PCP Nurse Practitioner Primary Care; Visit Provider Nurse Practitioner | DX: R06.02 Shortness of breath (principal); R94.31 Abnormal electrocardiogram [ECG] [EKG] | CPT/HCPCS: 78452; 93016; 93018 ==

== ENCOUNTER 2024-03-06 09:54 | Outpatient (AMB) | payer MEDICARE, SELFPAY ==
--- NOTE | 2024-03-06 08:36 | A.OFFVIS_ITS ---
Vital Signs 03/06/24 09:55 Height 5 ft 11 in Weight 191 lb BMI 26.6 BP 110/78 Blood Pressure Location Rt brachial Position Sitting Pulse 98 Pulse Source Pulse Oximeter Pulse Oximetry (%) 94 Oxygen Delivery Method Room Air Intake Visit Reasons: dyspnea Allergies Penicillins Allergy (Severe, Verified 03/06/24 09:58) unknown peanuts Allergy (Severe, Uncoded 03/06/24 09:58) Anaphylaxis HPI HPI dyspnea: Details: Jose is a pleasant 84 year old male, never smoker, with underlying asthma since childhood, prostate cancer s/p prostatectomy and bilateral orchiectomy 2007 and chronic alcoholism in remission since 2020. He reports moderate control with Trelegy and albuterol MDI, continues with dyspnea however denies cough, chest tightness or wheezing. He reports infrequent use of albuterol. He did undergo stress test which was unremarkable. Of note, he did stop the Trelegy a few weeks ago and switched to Advair as he is in the donut hole. He denies any worsening of symptoms with use. He denies any visits to urgent care or hospitalizations since the last visit. [facility] Family History (Updated 10/19/23 @ 10:39 by Bran Guerrero MD) Father No problems noted. Mother No problems noted. Social History Alcohol intake: former Patient Tobacco Use Status: Never used Tobacco Review of Systems Const Denies chills, Denies excessive sweating, Denies fever(s), Denies headache(s) and Denies night sweats Eyes Denies dry eyes, Denies irritation and Denies itchy eyes ENT Reports Normal hearing present, Denies headache(s), Denies nasal congestion, Denies nasal discharge, Denies post nasal drip and Denies sore throat Card Denies chest pain, Denies chest pain at rest, Denies chest pain with activity, Denies claudication, Denies leg edema, Reports dyspnea on exertion, Denies orthopnea and Denies paroxysmal nocturnal dyspnea Resp Denies chest congestion, Denies cough, Denies excessive phlegm production, Denies pain on inspiration, Denies pain with cough, Reports dyspnea on exertion and Denies stridor Musc Denies myalgias Neuro Reports Normal hearing present and Denies headache(s) Endo Denies excessive sweating Joseph/Lymph Denies lymphadenopathy Aller/Immun Denies itchy eyes and Denies seasonal rhinorrhea Physical Exam Vital Signs: Last Vital Signs Pulse 98 03/06/24 09:55 BP 110/78 03/06/24 09:55 Pulse Ox 94 03/06/24 09:55 Oxygen Delivery Method Room Air 03/06/24 09:55 BMI result Body Mass Index 26.6 Const General: cooperative, healthy appearing, comfortable, no acute distress, well developed and alert Orientation/consciousness: patient oriented x3 Limitations: no limitations HEENT Head: Yes normal to inspection, Yes normocephalic and Yes atraumatic Ears: hearing grossly normal bilaterally and external ears normal Eyes General: appearance normal, both eyes and all related structures Eyelids: Yes eyelids normal Sclerae: sclerae normal EOM: EOMs intact bilaterally Neck Neck: Yes normal visual inspection and Yes no lymphadenopathy Lymphatic: no lymphadenopathy noted Chest Chest palpation & inspection: normal inspection of the chest Resp Effort & Inspection: normal respiratory effort, able to speak in complete sentences, no audible wheezes, no cough, no stridor, not tachypneic, no tripod positioning and no use of accessory muscles Auscultation: no crackles, no rhonchi, no wheezes and diminished lung sounds Cardio Jugular venous distension: no JVD Rate: regular rate Rhythm: regular rhythm Skin Other: warm, dry General skin exam: no rashes or lesions noted Neuro General: patient oriented x3 Cranial nerves: Yes Normal hearing present Cognition (Neuro): normal cognition Gait exam (Neuro): Normal gait present Extrem General: Yes normal to inspection, Yes capillary refill normal, Yes no clubbing, cyanosis or edema and Yes no pedal edema Psych Appearance: grossly normal and well kempt Speech and movement: Normal speech and movement present and Clear speech present Affect: normal affect Attitude: cooperative Thought process: Normal thought process present Thought content: Normal thought content present Insight: Good insight present (Psych) Judgement: Good judgement present (Psych) Assessment & Plan Assessment & Plan (1) Asthma: Code(s): J45.909 - Unspecified asthma, uncomplicated Category: Medical (2) Dyspnea: Code(s): R06.00 - Dyspnea, unspecified Category: Medical Plan Jose would like to continue with [facility] as he has multiple at home, until the 1st of the year. He is aware to call if symptoms worsen. All questions were answered and patient is in agreement of plan. Will follow-up in 3 months or sooner if needed. Medications: New fluticasone propion-salmeterol 500-50 mcg/dose (Advair Diskus) 1 inh inhalation Q12H 60 ea 3RF Coding Level of Care Code Est Pt Level 3 (96863) Diagnoses Asthma J45.909 Dyspnea R06.00
[2024-03-06 09:55] VITALS: BP 110/78; PULSE 98; O2SAT 94; BMI 26.6
== END 2024-03-06 10:27 | disposition home or self-care (01) ==
PROVIDERS: PCP Nurse Practitioner Primary Care; Visit Provider Nurse Practitioner Family
DX: J45.909 Unspecified asthma, uncomplicated (principal); R06.00 Dyspnea, unspecified
CPT/HCPCS: 99213

== ENCOUNTER → 2024-03-06 09:54 | Outpatient (BNVA) | payer MEDICARE, SELFPAY | PROVIDERS: PCP Nurse Practitioner Primary Care; Visit Provider Nurse Practitioner Family | DX: J45.909 Unspecified asthma, uncomplicated (principal); R06.00 Dyspnea, unspecified | CPT/HCPCS: 99212 ==

== ENCOUNTER 2024-05-30 09:48 | Outpatient (REF) | payer MEDICARE, SELFPAY ==
--- NOTE | ~2024-05-30 | XR_ITS ---
EXAMINATION: XR CHEST CLINICAL INFORMATION: R05.9 - Cough, unspecified, the patient states doctor heard wheezing noises from the chest. COMPARISON: None available. TECHNIQUE: 3 views of the chest were obtained. FINDINGS: There is marked asymmetric elevation of the right lung base with multiple distended air-filled loops of bowel, obscuring the right hilum and right heart border. Correlation with clinical exam and possible dedicated imaging of the abdomen recommended to determine further management. Streaky opacities in the lingula/left lung base. Mild bilateral upper paramediastinal streaky opacities. There is no gross pneumothorax. Moderate left and possible right pleural effusion. Degenerative changes in the thoracic spine. XR/XR chest 2V IMPRESSION: Marked asymmetric elevation of the right lung base with multiple distended air-filled loops of bowel, obscuring the right hilum and right heart border. Correlation with clinical exam and possible dedicated imaging of the abdomen recommended to determine further management. Streaky opacities in the lingula/left lung base. Moderate pleural effusion. Dedicated CT scan of the chest and abdomen recommended for further evaluation. This study was presented today May 30, 2024 for interpretation. Stat results provided at this time as requested by referring provider. Electronically signed by: Carlene Parada MD 05/30/2024 01:04 PM SLAVA
--- OUTSIDE RECORDS SUMMARY | 2024-05-30 10:49 | XMS_ITS | Clinical Summary ---
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 Active 00:00: [...] tablet 01-03 00:00: 01-31 00:00 :00 No [id number] Per instruc tions EVERYDAY Per instructio ns EVERYDAY (route: oral) Med Classific ation: Gastroint estinal Therapy Agents lactulose 10 gram/15 mL oral solution 12-28 00:00: 00 01-31 00:00 :00 No [id number] Per instruc tions TWO TIMES A DAY FOR 10 DAYS Per instructio ns TWO TIMES A DAY FOR 10 DAYS (route: oral) Med Classific ation: Gastroint estinal Therapy Agents folic acid 1 mg tablet 01-30 00:00: 00 01-04 23:59 :00 No [id number] 1 tablet DAILY 1 tablet DAILY (route: oral) Med Classific ation: Electroly te Balance-N utritiona l Products levothyroxi ne 75 mcg tablet 01-30 00:00: 00 01-04 23:59 :00 No [id number] 1 tablet DAILY 1 tablet DAILY (route: oral) Med Classific ation: Endocrine multivitami n tablet 01-30 00:00: 00 01-04 23:59 :00 No [id number] 1 tablet DAILY 1 tablet DAILY (route: oral) Med Classific ation: Electroly te Balance-N utritiona l Products ProAir HFA 90 mcg/actuati on aerosol inhaler 01-30 00:00: 00 01-04 23:59 :00 No [id number] 1 puff EVERY 6 HOURS 1 puff EVERY 6 HOURS (route: inhalation ) Med Classific ation: Respirato ry Therapy Agents thiamine HCl (vitamin B1) 100 mg tablet 01-30 00:00: 00 01-04 23:59 :00 No [id number] 1 tablet DAILY 1 tablet DAILY (route: oral) Med Classific ation: Electroly te Balance-N utritiona l Products tramadol 50 mg tablet 01-30 00:00: 00 01-04 23:59 :00 No [id number] 1 tablet EVERY 4 HOURS 1 tablet EVERY 4 HOURS (route: oral) Med Classific ation: Analgesic , Anti-infl ammatory or Antipyret ic Wixela Inhub 500 mcg-50 mcg/dose powder for inhalation 01-30 00:00: 00 01-04 23:59 :00 No [id number] 1 mcg 2 TIMES DAILY 1 mcg 2 TIMES DAILY (route: inhalation ) Med Classific ation: Respirato ry Therapy Agents fluoxetine 10 mg tablet 2019-06 00:00: 00 01-04 23:59 :00 No [id number] 1 tablet DAILY 1 tablet DAILY (route: [...] FOLLOWING ANY HOSPITAL ADMISSION. ALL DISCIPLINES (EXCEPT TESTER REGULATOR) MAY PROVIDE TELEHEALTH PHONE/REMOTE/VIRTUAL VISITS IN LIEU [...] FOLLOWING ANY HOSPITAL ADMISSION. ALL DISCIPLINES (EXCEPT TESTER REGULATOR) MAY PROVIDE TELEHEALTH PHONE/REMOTE/VIRTUAL VISITS IN LIEU [...] EMERGENCY SERVICES CALL [facility] NURSE TO KEEP SHANK PIECE TACKER SYMPTOM REPORT FOR VISIBLE REFERENCE NOTIFY SKILLED [...] EMERGENCY SERVICES CALL DOTTIE NURSE TO KEEP SHANK PIECE TACKER SYMPTOM REPORT FOR VISIBLE REFERENCE NOTIFY SKILLED [...] PRN VISITS ; PATIENT REQUIRES 3 PRN SHELTER VISITS FOR COMPLICATIONS RELATED TO COLOSTOMY [code = PRN VISITS; PATIENT REQUIRES 3 PRN SHELTER VISITS FOR COMPLICATIONS RELATED TO COLOSTOMY ] [...] End Date/Time Encounter Type Admission Type Attending [facility] Department Encounter ID Discharge Date Discharge Status Discharge Condition Discharge Reason Percent Goals Met 2020-02-01 00:00:00 2020-05-27 00:00:00 Outpatient BRANDINRTTEJAL GARCIA [facility] [id number] 2020-05-27 00:00:00 DISCHARGE TO HOME OR SELF CARE INDEPENDEN T IN THE HOME HH OR PAL- GOALS MET 100.00
--- OUTSIDE RECORDS SUMMARY | 2024-05-30 10:50 | XMS_ITS | Clinical Summary ---
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 Active 00:00: [...] tablet 01-03 00:00: 01-31 00:00 :00 No [id number] Per instruc tions EVERYDAY Per instructio ns EVERYDAY (route: oral) Med Classific ation: Gastroint estinal Therapy Agents lactulose 10 gram/15 mL oral solution 12-28 00:00: 00 01-31 00:00 :00 No [id number] Per instruc tions TWO TIMES A DAY FOR 10 DAYS Per instructio ns TWO TIMES A DAY FOR 10 DAYS (route: oral) Med Classific ation: Gastroint estinal Therapy Agents folic acid 1 mg tablet 01-30 00:00: 00 01-04 23:59 :00 No [id number] 1 tablet DAILY 1 tablet DAILY (route: oral) Med Classific ation: Electroly te Balance-N utritiona l Products levothyroxi ne 75 mcg tablet 01-30 00:00: 00 01-04 23:59 :00 No [id number] 1 tablet DAILY 1 tablet DAILY (route: oral) Med Classific ation: Endocrine multivitami n tablet 01-30 00:00: 00 01-04 23:59 :00 No [id number] 1 tablet DAILY 1 tablet DAILY (route: oral) Med Classific ation: Electroly te Balance-N utritiona l Products ProAir HFA 90 mcg/actuati on aerosol inhaler 01-30 00:00: 00 01-04 23:59 :00 No [id number] 1 puff EVERY 6 HOURS 1 puff EVERY 6 HOURS (route: inhalation ) Med Classific ation: Respirato ry Therapy Agents thiamine HCl (vitamin B1) 100 mg tablet 01-30 00:00: 00 01-04 23:59 :00 No [id number] 1 tablet DAILY 1 tablet DAILY (route: oral) Med Classific ation: Electroly te Balance-N utritiona l Products tramadol 50 mg tablet 01-30 00:00: 00 01-04 23:59 :00 No [id number] 1 tablet EVERY 4 HOURS 1 tablet EVERY 4 HOURS (route: oral) Med Classific ation: Analgesic , Anti-infl ammatory or Antipyret ic Wixela Inhub 500 mcg-50 mcg/dose powder for inhalation 01-30 00:00: 00 01-04 23:59 :00 No [id number] 1 mcg 2 TIMES DAILY 1 mcg 2 TIMES DAILY (route: inhalation ) Med Classific ation: Respirato ry Therapy Agents fluoxetine 10 mg tablet 2019-06 00:00: 00 01-04 23:59 :00 No [id number] 1 tablet DAILY 1 tablet DAILY (route: [...] FOLLOWING ANY HOSPITAL ADMISSION. ALL DISCIPLINES (EXCEPT NEIGHBORHOOD WORKER) MAY PROVIDE TELEHEALTH PHONE/REMOTE/VIRTUAL VISITS IN LIEU [...] FOLLOWING ANY HOSPITAL ADMISSION. ALL DISCIPLINES (EXCEPT NEIGHBORHOOD WORKER) MAY PROVIDE TELEHEALTH PHONE/REMOTE/VIRTUAL VISITS IN LIEU [...] EMERGENCY SERVICES CALL [facility] NURSE TO KEEP ENCODING CLERK SYMPTOM REPORT FOR VISIBLE REFERENCE NOTIFY SKILLED [...] EMERGENCY SERVICES CALL DOTTIE NURSE TO KEEP ENCODING CLERK SYMPTOM REPORT FOR VISIBLE REFERENCE NOTIFY SKILLED [...] PRN VISITS ; PATIENT REQUIRES 3 PRN MCC VISITS FOR COMPLICATIONS RELATED TO COLOSTOMY [code = PRN VISITS; PATIENT REQUIRES 3 PRN MCC VISITS FOR COMPLICATIONS RELATED TO COLOSTOMY ] [...] End Date/Time Encounter Type Admission Type Attending [facility] Department Encounter ID Discharge Date Discharge Status Discharge Condition Discharge Reason Percent Goals Met 2020-02-01 00:00:00 2020-05-27 00:00:00 Outpatient BRANDINRTTEJAL GARCIA [facility] [id number] 2020-05-27 00:00:00 DISCHARGE TO HOME OR SELF CARE INDEPENDEN T IN THE HOME HH OR PAL- GOALS MET 100.00
== END 2024-05-30 09:49 | disposition home or self-care (01) ==
LOC: HO.XRAY 09:48
PROVIDERS: PCP Nurse Practitioner Primary Care; Visit Provider Nurse Practitioner Family
DX: R05.9 Cough, unspecified (principal); J45.909 Unspecified asthma, uncomplicated; R06.00 Dyspnea, unspecified
CPT/HCPCS: 71046; 99212

== ENCOUNTER 2024-05-30 09:48 | Outpatient (AMB) | payer MEDICARE, SELFPAY ==
--- OUTSIDE RECORDS SUMMARY | 2024-05-30 09:50 | XMS_ITS | Clinical Summary ---
Author Organization Unknown Care Team Providers Care Computer Terminal Operator Name Role Phone RICHA ISABELSUZIE ZAVALA Unavailable Unavailherman REYES RN, JACINTA Unavailable Unavailable MIMI PT, JOSETTE Unavailable Unavailable KARI RN, JAYSON Unavailable Unavailable [place] OT, ELSY Unavailable Unavailable KATHY REYEZ, TEJAL Unavailable Unavailable Payers Payer Name Policy Type Policy Number Effective Date Expira tion Date MEDICARE.NGS.PDGM [id number] Problems Condition Name Condition Details Condition Category Status Onset Date Resolution Date Last Treatment Date Treating Clinician Comments ENCNTR FOR SURGICAL AFTCR FOLLOWING SURGERY ON THE DGSTV SYS Active 01-31 00:00: 00 ENCOUNTER FOR ATTENTION TO ILEOSTOMY Active 01-31 00:00: 00 UNSPECIFIED PROTEIN-ARSLAN LYNDON MALNUTRITION Active 01-23 00:00: 00 CHRONIC OBSTRUCTIVE PULMONARY DISEASE, UNSPECIFIED Active 06-13 00:00: 00 ESSENTIAL (PRIMARY) HYPERTENSION Active 06-13 00:00: 00 ALCOHOL ABUSE, UNCOMPLICATE D Active 01-20 00:00: 00 OTH SYMPTOMS AND SIGNS W COGNITIVE FUNCTIONS AND AWARENESS Active 8 00:00: 00 HYPOTHYROIDI SM, UNSPECIFIED Active - 00:00: 00 NONTOXIC SINGLE THYROID NODULE Active - 00:00: 00 ELEVATED WHITE BLOOD CELL COUNT, UNSPECIFIED Active 8 00:00: 00 HISTORY OF FALLING Active - 00:00: 00 ACQUIRED ABSENCE OF OTHER SPECIFIED PARTS OF DIGESTIVE TRACT Active 8 00:00: 00 PERSONAL HISTORY OF MALIGNANT NEOPLASM OF PROSTATE Active - 00:00: 00 PERSONAL HISTORY OF (HEALED) TRAUMATIC FRACTURE Active 2017-06 1- 00:00: 00 [employer] (CURRENT) USE OF INHALED STEROIDS Active 00:00: 00 Allergies, Adverse Reactions, Alerts Allergy Name Allergy Type Status Severity Reaction(s) Onset Date Inactive Date Treating Clinician Comments PENICILLINS Propensity to adverse reactions Active 02-01 10:32: 11 Medications Ordered Medication Name Filled Medication Name Start Date Stop Date Current Medication? Ordering Clinician Indication Dosage Frequency Signature (SIG) Comments Components Stimulant Laxative Plus 8.6 mg-50 mg tablet 01-03 00:00: 01-31 00:00 :00 No [id number] Per instruc tions EVERYDAY Per instructio ns EVERYDAY (route: oral) Med Classific ation: Gastroint estinal Therapy Agents lactulose 10 gram/15 mL oral solution 12-28 00:00: 00 01-31 00:00 :00 No [id number] Per instruc tions TWO TIMES A DAY FOR 10 DAYS Per instructio ns TWO TIMES A DAY FOR 10 DAYS (route: oral) Med Classific ation: Gastroint estinal Therapy Agents folic acid 1 mg tablet 01-30 00:00: 00 01-04 23:59 :00 No [id number] 1 tablet DAILY 1 tablet DAILY (route: oral) Med Classific ation: Electroly te Balance-N utritiona l Products levothyroxi ne 75 mcg tablet 01-30 00:00: 00 01-04 23:59 :00 No [id number] 1 tablet DAILY 1 tablet DAILY (route: oral) Med Classific ation: Endocrine multivitami n tablet 01-30 00:00: 00 01-04 23:59 :00 No [id number] 1 tablet DAILY 1 tablet DAILY (route: oral) Med Classific ation: Electroly te Balance-N utritiona l Products ProAir HFA 90 mcg/actuati on aerosol inhaler 01-30 00:00: 00 01-04 23:59 :00 No [id number] 1 puff EVERY 6 HOURS 1 puff EVERY 6 HOURS (route: inhalation ) Med Classific ation: Respirato ry Therapy Agents thiamine HCl (vitamin B1) 100 mg tablet 01-30 00:00: 00 01-04 23:59 :00 No [id number] 1 tablet DAILY 1 tablet DAILY (route: oral) Med Classific ation: Electroly te Balance-N utritiona l Products tramadol 50 mg tablet 01-30 00:00: 00 01-04 23:59 :00 No [id number] 1 tablet EVERY 4 HOURS 1 tablet EVERY 4 HOURS (route: oral) Med Classific ation: Analgesic , Anti-infl ammatory or Antipyret ic Wixela Inhub 500 mcg-50 mcg/dose powder for inhalation 01-30 00:00: 00 01-04 23:59 :00 No [id number] 1 mcg 2 TIMES DAILY 1 mcg 2 TIMES DAILY (route: inhalation ) Med Classific ation: Respirato ry Therapy Agents fluoxetine 10 mg tablet 2019-06 00:00: 00 01-04 23:59 :00 No [id number] 1 tablet DAILY 1 tablet DAILY (route: oral) Med Classific ation: Central Nervous System Agents Vital Signs Vital Name Observation Time Observation Value Commen ts Temperature 2020-05-27 09:50:32.000 98.8 [degF] Temperature 2020-05-12 12:46:20.000 96.7 [degF] Temperature 2020-04-30 15:41:58.000 96.8 [degF] Temperature 2020-04-17 13:16:56.000 96.8 [degF] Temperature 2020-04-03 15:08:50.000 98.7 [degF] Pulse 2020-05-27 09:51:17.000 68 /min Pulse 2020-05-12 12:46:50.000 74 /min Pulse 2020-04-30 15:42:07.000 74 /min Pulse 2020-04-17 13:28:29.000 80 /min Pulse 2020-04-03 15:09:08.000 76 /min O2 Saturation (%) 2020-05-27 09:53:26.000 95 % O2 Saturation (%) 2020-05-12 12:48:02.000 95 % O2 Saturation (%) 2020-04-30 15:42:42.000 95 % O2 Saturation (%) 2020-04-17 13:17:49.000 93 % O2 Saturation (%) 2020-04-03 15:09:49.000 98 % Respirations 2020-05-27 09:51:32.000 18 /min Respirations 2020-05-12 12:46:57.000 18 /min Respirations 2020-04-30 15:42:12.000 18 /min Respirations 2020-04-17 13:17:15.000 18 /min Respirations 2020-04-03 15:09:17.000 18 /min Systolic Blood Pressure 2020-05-27 09:53:18.000 120 mm [Hg] Systolic Blood Pressure 2020-05-12 12:47:24.000 100 mm [Hg] Systolic Blood Pressure 2020-04-30 15:42:24.000 118 mm [Hg] Systolic Blood Pressure 2020-04-17 13:17:27.000 128 mm [Hg] Systolic Blood Pressure 2020-04-03 15:09:32.000 118 mm [Hg] Diastolic Blood Pressure 2020-05-27 09:53:18.000 76 mm [Hg] Diastolic Blood Pressure 2020-05-12 12:47:24.000 74 mm [Hg] Diastolic Blood Pressure 2020-04-30 15:42:24.000 74 mm [Hg] Diastolic Blood Pressure 2020-04-17 13:17:27.000 74 mm [Hg] Diastolic Blood Pressure 2020-04-03 15:09:32.000 66 mm [Hg] Plan of Treatment Planned Activity Planned Date Details Comments Future Scheduled Test SKILLED NU RSE TO ASSESS, EVALUATE, AND DEVELOP AN INDIVIDUALIZED PLAN OF CARE. AGENCY MAY ACCEPT ORDERS FROM CONSULTING PHYSICIANS DR CHAUDHRY, DR SUMANTH DIAZ SN TO OBSERVE/ASSESS RISK FOR FALLS AND INSTRUCT IN FALL PREVENTION, HOME SAFETY, MEDICATION MANAGEMENT, INFECTION PREVENTION, AND NUTRITION MANAGEMENT. SN MAY PERFORM O2 SATURATION LEVEL ON ADMISSION AND PRN TO ASSESS PATIENT, WITH NOTIFICATION TO THE PHYSICIAN IF SATURATION IS 90% IN THE ABSENCE OF MORE SPECIFIC PARAMETERS FROM THE PHYSICIAN. AGENCY MAY PERFORM A RESUMPTION OF CARE VISIT FOLLOWING ANY HOSPITAL ADMISSION. ALL DISCIPLINES (EXCEPT GAS METER INSTALLER HELPER) MAY PROVIDE TELEHEALTH PHONE/REMOTE/VIRTUAL VISITS IN LIEU OF AN IN-PERSON VISIT THAT DOES NOT REQUIRE HANDS ON OR IN PERSON ASSESSMENT WHEN AN IN-PERSON VISIT IS NOT POSSIBLE DUE TO THE PUBLIC HEALTH EMERGENCY RELATED TO THE COVID-19 PANDEMIC. SKILLED NURSE TO INSTRUCT PATIENT / CAREGIVER ON DISEASE PROCESS, SELF MANAGEMENT, SIGNS AND SYMPTOMS TO REPORT TO SN/PHYSICIAN, RELATED TO: ILEOSTOMY, COPD, FALL RISK, HYPERTENSION [code = SKILLED NURSE TO ASSESS, EVALUATE, AND DEVELOP AN INDIVIDUALIZED PLAN OF CARE. AGENCY MAY ACCEPT ORDERS FROM CONSULTING PHYSICIANS DR CHAUDHRY, DR SUMANTH DIAZ SN TO OBSERVE/ASSESS RISK FOR FALLS AND INSTRUCT IN FALL PREVENTION, HOME SAFETY, MEDICATION MANAGEMENT, INFECTION PREVENTION, AND NUTRITION MANAGEMENT. SN MAY PERFORM O2 SATURATION LEVEL ON ADMISSION AND PRN TO ASSESS PATIENT, WITH NOTIFICATION TO THE PHYSICIAN IF SATURATION IS 90% IN THE ABSENCE OF MORE SPECIFIC PARAMETERS FROM THE PHYSICIAN. AGENCY MAY PERFORM A RESUMPTION OF CARE VISIT FOLLOWING ANY HOSPITAL ADMISSION. ALL DISCIPLINES (EXCEPT GAS METER INSTALLER HELPER) MAY PROVIDE TELEHEALTH PHONE/REMOTE/VIRTUAL VISITS IN LIEU OF AN IN-PERSON VISIT THAT DOES NOT REQUIRE HANDS ON OR IN PERSON ASSESSMENT WHEN AN IN-PERSON VISIT IS NOT POSSIBLE DUE TO THE PUBLIC HEALTH EMERGENCY RELATED TO THE COVID-19 PANDEMIC. SKILLED NURSE TO INSTRUCT PATIENT / CAREGIVER ON DISEASE PROCESS, SELF MANAGEMENT, SIGNS AND SYMPTOMS TO REPORT TO SN/PHYSICIAN, RELATED TO: ILEOSTOMY, COPD, FALL RISK, HYPERTENSION ] Future Scheduled Test MEDICATION MANAGEMENT; SKILLED NURSE TO REVIEW MEDICATIONS FOR INTERACTIONS, EFFECTIVENESS OF DRUG THERAPY, AND SIGNS/SYMPTOMS OF ADVERSE REACTIONS. MAY INSTRUCT AND REINFORCE MEDICATION TEACHING RELATED TO THE USE OF MEDICATIONS, DOSAGE, FREQUENCY, PURPOSE, SIDE EFFECTS, AND TO REPORT COMPLICATIONS. [code = MEDICATION MANAGEMENT; SKILLED NURSE TO REVIEW MEDICATIONS FOR INTERACTIONS, EFFECTIVENESS OF DRUG THERAPY, AND SIGNS/SYMPTOMS OF ADVERSE REACTIONS. MAY INSTRUCT AND REINFORCE MEDICATION TEACHING RELATED TO THE USE OF MEDICATIONS, DOSAGE, FREQUENCY, PURPOSE, SIDE EFFECTS, AND TO REPORT COMPLICATIONS.] Future Scheduled Test RISK FOR H OSPITALIZATION; SKILLED NURSE TO INSTRUCT PATIENT/CAREGIVER ON RISK FOR HOSPITALIZATION, TEACH SIGNS AND SYMPTOMS THAT PUT PATIENT AT RISK, WHEN TO NOTIFY NURSE OF COMPLICATIONS/DECLINE, AND WHEN TO CALL 911. SKILLED NURSE TO INSTRUCT PATIENT/CAREGIVER ON: SIGNS AND SYMPTOMS TO BE ON ALERT FOR EARLY INTERVENTION, PRIOR TO NEEDING EMERGENCY SERVICES CALL [facility] NURSE TO KEEP DIAMOND FINISHING SUPERVISOR SYMPTOM REPORT FOR VISIBLE REFERENCE NOTIFY SKILLED NURSE/PHYSICIAN FOR DECLINE IN STATS WHEN AND HOW TO CALL HOME HEALTH AGENCY FACILITATE PHYSICIAN FOLLOW UP APPOINTMENT IDENTIFY SOCIOECONOMIC CONCERNS AND MAKE APPROPRIATE REFERRAL NEEDED IDENTIFY PATIENT GOALS FOR STAYING OUT OF THE HOSPITAL: WANTS TO BE MORE ACT8VE [code = RISK FOR HOSPITALIZATION; SKILLED NURSE TO INSTRUCT PATIENT/CAREGIVER ON RISK FOR HOSPITALIZATION, TEACH SIGNS AND SYMPTOMS THAT PUT PATIENT AT RISK, WHEN TO NOTIFY NURSE OF COMPLICATIONS/DECLINE, AND WHEN TO CALL 911. SKILLED NURSE TO INSTRUCT PATIENT/CAREGIVER ON: SIGNS AND SYMPTOMS TO BE ON ALERT FOR EARLY INTERVENTION, PRIOR TO NEEDING EMERGENCY SERVICES CALL [facility] NURSE TO KEEP DIAMOND FINISHING SUPERVISOR SYMPTOM REPORT FOR VISIBLE REFERENCE NOTIFY SKILLED NURSE/PHYSICIAN FOR DECLINE IN STATS WHEN AND HOW TO CALL HOME HEALTH AGENCY FACILITATE PHYSICIAN FOLLOW UP APPOINTMENT IDENTIFY SOCIOECONOMIC CONCERNS AND MAKE APPROPRIATE REFERRAL NEEDED IDENTIFY PATIENT GOALS FOR STAYING OUT OF THE HOSPITAL: WANTS TO BE MORE ACT8VE] Future Scheduled Test CARDIOVASC ULAR SYSTEM; SKILLED NURSE TO ASSESS AND TEACH RELATED TO ALTERED CARDIOVASCULAR STATUS TO MINIMIZE COMPLICATIONS AND REDUCE HOSPITALIZATION. [code = CARDIOVASCULAR SYSTEM; SKILLED NURSE TO ASSESS AND TEACH RELATED TO ALTERED CARDIOVASCULAR STATUS TO MINIMIZE COMPLICATIONS AND REDUCE HOSPITALIZATION.] Future Scheduled Test RESPIRATOR Y SYSTEM MANAGEMENT; SKILLED NURSE TO ASSESS AND TEACH RELATED TO ALTERED RESPIRATORY STATUS TO MINIMIZE COMPLICATIONS AND REDUCE HOSPITALIZATION. [code = RESPIRATORY SYSTEM MANAGEMENT; SKILLED NURSE TO ASSESS AND TEACH RELATED TO ALTERED RESPIRATORY STATUS TO MINIMIZE COMPLICATIONS AND REDUCE HOSPITALIZATION.] Future Scheduled Test COPD MANAG EMENT; SKILLED NURSE TO ASSESS AND TEACH SIGNS/SYMPTOMS OF COPD EXACERBATION AND PROVIDE EARLY INTERVENTIONS TO MINIMIZE RISK OF HOSPITALIZATION. SKILLED NURSE TO INSTRUCT ON SELF-CARE MANAGEMENT INCLUDING BREATHING TECHNIQUES, AIRWAY CLEARANCE, AND PROPER USE OF COPD MEDICATIONS. ASSESS PATIENT/CAREGIVER ABILITY TO MONITOR AND RECORD VITALS SIGNS INCLUDING PULSE OXIMETRY AND BLOOD PRESSURE. PULSE OXIMETER AND BP MONITOR TO BE PROVIDED IF NEEDED [code = COPD MANAGEMENT; SKILLED NURSE TO ASSESS AND TEACH SIGNS/SYMPTOMS OF COPD EXACERBATION AND PROVIDE EARLY INTERVENTIONS TO MINIMIZE RISK OF HOSPITALIZATION. SKILLED NURSE TO INSTRUCT ON SELF-CARE MANAGEMENT INCLUDING BREATHING TECHNIQUES, AIRWAY CLEARANCE, AND PROPER USE OF COPD MEDICATIONS. ASSESS PATIENT/CAREGIVER ABILITY TO MONITOR AND RECORD VITALS SIGNS INCLUDING PULSE OXIMETRY AND BLOOD PRESSURE. PULSE OXIMETER AND BP MONITOR TO BE PROVIDED IF NEEDED ] Future Scheduled Test PAIN MANAG EMENT; SKILLED NURSE TO OBSERVE, ASSESS, AND PROVIDE EDUCATION ON PAIN MANAGEMENT TECHNIQUES. [code = PAIN MANAGEMENT; SKILLED NURSE TO OBSERVE, ASSESS, AND PROVIDE EDUCATION ON PAIN MANAGEMENT TECHNIQUES.] Future Scheduled Test GASTROINTE STINAL MANAGEMENT; SKILLED NURSE TO ASSESS AND TEACH RELATED TO ALTERED GASTROINTESTINAL STATUS TO MINIMIZE COMPLICATIONS AND REDUCE HOSPITALIZATION. [code = GASTROINTESTINAL MANAGEMENT; SKILLED NURSE TO ASSESS AND TEACH RELATED TO ALTERED GASTROINTESTINAL STATUS TO MINIMIZE COMPLICATIONS AND REDUCE HOSPITALIZATION.] Future Scheduled Test COLOSTOMY/ ILEOSTOMY TEACHING/MANAGEMENT; SKILLED NURSE TO INSTRUCT PATIENT/CAREGIVER ON ILEOSTOMY MANAGEMENT INCLUDING APPLIANCE TYPE, USAGE, AND STOMAL CARE. SKILLED NURSE MAY PERFORM OSTOMY APPLIANCE CHANGE AND STOMA CARE EACH VISIT NEEDED. [code = COLOSTOMY/ILEOSTOMY TEACHING/MANAGEMENT; SKILLED NURSE TO INSTRUCT PATIENT/CAREGIVER ON ILEOSTOMY MANAGEMENT INCLUDING APPLIANCE TYPE, USAGE, AND STOMAL CARE. SKILLED NURSE MAY PERFORM OSTOMY APPLIANCE CHANGE AND STOMA CARE EACH VISIT NEEDED.] Future Scheduled Test MALNUTRITI ON MANAGEMENT; SKILLED NURSE TO OBSERVE, ASSESS AND INSTRUCT PATIENT / CAREGIVER ON INTERVENTIONS TO IMPROVE NUTRITIONAL INTAKE AND PATIENT WELL BEING. [code = MALNUTRITION MANAGEMENT; SKILLED NURSE TO OBSERVE, ASSESS AND INSTRUCT PATIENT / CAREGIVER ON INTERVENTIONS TO IMPROVE NUTRITIONAL INTAKE AND PATIENT WELL BEING.] Future Scheduled Test FALL REDUC TION MANAGEMENT; NURSING TO PROVIDE SKILLED ASSESSMENT, EDUCATION, AND INTERVENTION TO IDENTIFY FALL RISK FACTORS SUCH MEDICATIONS THAT MAY CAUSE DIZZINESS, CHRONIC DISEASES, PSYCHOLOGICAL FACTORS, AND EMPOWER/EDUCATE PATIENT/CAREGIVER TO MINIMIZE FALL RISK. [code = FALL REDUCTION MANAGEMENT; NURSING TO PROVIDE SKILLED ASSESSMENT, EDUCATION, AND INTERVENTION TO IDENTIFY FALL RISK FACTORS SUCH MEDICATIONS THAT MAY CAUSE DIZZINESS, CHRONIC DISEASES, PSYCHOLOGICAL FACTORS, AND EMPOWER/EDUCATE PATIENT/CAREGIVER TO MINIMIZE FALL RISK.] Future Scheduled Test PRN VISITS ; PATIENT REQUIRES 3 PRN LONGTERM VISITS FOR COMPLICATIONS RELATED TO COLOSTOMY [code = PRN VISITS; PATIENT REQUIRES 3 PRN LONGTERM VISITS FOR COMPLICATIONS RELATED TO COLOSTOMY ] Goal 2020-03-27 Patient Goal - GET BETTER Goal 2020-05-27 Patient Goal - G ET BETTER GET WELL ENOUGHTP WALK MOLKY, THE DOG Goal Provider Goal - A PLAN OF CARE WILL BE ESTABLISHED THAT MEETS THE PATIENT'S NURSING NEEDS BY 05/30/20 PATIENT WILL DEMONSTRATE OXYGEN SATURATION WITH NORMAL LIMITS OR TO PATIENT'S OPTIMAL LEVEL ESTABLISHED BY THE PHYSICIAN THROUGHOUT CARE Goal Provider Goal - PATIENT/CAREGIVER TO VERBALIZE, AND CONSISTENTLY DEMONSTRATE EFFECTIVE, SAFE MANAGEMENT OF MEDICATION INCLUDING KNOWLEDGE OF EFFECTIVENESS, POTENTIAL SIDE EFFECTS AND DRUG REACTIONS AND WHEN TO CONTACT THE APPROPRIATE CARE PROVIDER. PATIENT/CAREGIVER WILL BE ABLE TO VERBALIZE UNDERSTANDING OF MEDICATION REGIMEN AND ACCURATELY TAKE MEDICATIONS PRESCRIBED WITHOUT ADVERSE EFFECTS BY 05/30/20 Goal Provider Goal - PATIENT/CAREGIVER WILL VERBALIZE UNDERSTANDING OF SIGNS AND SYMPTOMS THAT PUT THE PATIENT AT RISK FOR HOSPITALIZATION, WHEN TO NOTIFY SN OF COMPLICATIONS/DECLINE AND WHEN TO CALL 911. Goal Provider Goal - PATIENT / CAREGIVER WILL VERBALIZE/DEMONSTRATE UNDERSTANDING OF MEASURES TO MANAGE ALTERED CARDIOVASCULAR STATUS BY 05/30/20 Goal Provider Goal - PATIENT / CAREGIVER WILL VERBALIZE/DEMONSTRATE UNDERSTANDING OF MEASURES TO MANAGE ALTERED RESPIRATORY STATUS BY END OF EPISODE. Goal Provider Goal - PATIENT / CAREGIVER WILL VERBALIZE/DEMONSTRATE AN ABILITY TO ADHERE TO SELF-MANAGEMENT OF COPD TO MINIMIZE COMPLICATIONS AND AVOID HOSPITALIZATION BY END OF EPISODE. Goal Provider Goal - PATIENT / CAREGIVER WILL VERBALIZE / DEMONSTRATE UNDERSTANDING OF PAIN CONTROL MEASURES BY 05/30/20 Goal Provider Goal - PATIENT / CAREGIVER WILL VERBALIZE/DEMONSTRATE UNDERSTANDING OF MEASURES TO MANAGE ALTERED GASTROINTESTINAL STATUS BY END OF EPISODE. Goal Provider Goal - PATIENT / CAREGIVER WILL BE ABLE TO VERBALIZE/DEMONSTRATE APPROPRIATE ILEOSTOMY CARE MANAGEMENT BY 05/30/20 Goal Provider Goal - PATIENT / CAREGIVER WILL VERBALIZE/DEMONSTRATE APPROPRIATE METHODS TO IMPROVE NUTRITIONAL STATUS BY END OF EPISODE. Goal Provider Goal - PATIENT/CAREGIVER ABLE TO IDENTIFY FALL RISK FACTORS AND IMPLEMENT STRATEGIES TO MINIMIZE FALL RISK. PATIENT/CAREGIVER WILL VERBALIZE/DEMONSTRATE AN ABILITY TO ADHERE TO FALL REDUCTION SELF MANAGEMENT AND LIFE-STYLE CHANGES AT DISCHARGE. PERSONAL GOAL(S) STATED BY PATIENT/CAREGIVER WILL BE MET BY 05/30/20 Goal Provider Goal - Reason for Visit INDEPENDENT IN THE HOME Encounters Start Date/Time End Date/Time Encounter Type Admission Type Attending [facility] Department Encounter ID Discharge Date Discharge Status Discharge Condition Discharge Reason Percent Goals Met 2020-02-01 00:00:00 2020-05-27 00:00:00 Outpatient [facility] [id number] 2020-05-27 00:00:00 DISCHARGE TO HOME OR SELF CARE INDEPENDEN T IN THE HOME HH OR [facility]- GOALS MET 100.00
--- NOTE | 2024-05-30 09:52 | A.OFFVIS_ITS ---
Vital Signs 05/30/24 09:53 Height 5 ft 11 in Weight 188 lb 6 oz BMI 26.3 BP 126/68 Blood Pressure Location Rt brachial Position Sitting Pulse 87 Pulse Source Pulse Oximeter Pulse Oximetry (%) 94 Oxygen Delivery Method Room Air Intake Visit Reasons: dyspnea Allergies Penicillins Allergy (Severe, Verified 05/30/24 09:54) unknown peanuts Allergy (Severe, Uncoded 05/30/24 09:54) Anaphylaxis HPI HPI dyspnea: Details: Jose is a pleasant 84 year old male, never smoker, with underlying asthma s kristin childhood, prostate cancer s/p prostatectomy and bilateral orchiectomy 2007 and chronic alcoholism in remission since 2020. He reports suboptimal control on Advair using albuterol MDI frequently for persistent dyspnea on exertion. Denies cough, wheezing or chest tightness. He was previously on Trelegy but discontinued due to coverage issues. He denies any visits to urgent care or hospitalizations since the last visit. [facility] Family History (Updated 10/19/23 @ 10:39 by Bran Guerrero MD) Father No problems noted. Mother No problems noted. Social History Alcohol intake: former Patient Tobacco Use Status: Never used Tobacco Review of Systems Const Denies chills, Denies excessive sweating, Denies fever(s), Denies headache(s) and Denies night sweats Eyes Denies dry eyes, Denies irritation and Denies itchy eyes ENT Reports Normal hearing present, Denies headache(s), Denies nasal congestion, Denies nasal discharge, Denies post nasal drip and Denies sore throat Card Denies chest pain, Denies chest pain at rest, Denies chest pain with activity, Denies claudication, Denies leg edema, Reports dyspnea on exertion, Denies orthopnea and Denies paroxysmal nocturnal dyspnea Resp Denies chest congestion, Denies cough, Denies excessive phlegm production, Denies pain on inspiration, Denies pain with cough, Reports dyspnea on exertion and Denies stridor Musc Denies myalgias Neuro Reports Normal hearing present and Denies headache(s) Endo Denies excessive sweating Joseph/Lymph Denies lymphadenopathy Aller/Immun Denies itchy eyes and Denies seasonal rhinorrhea Physical Exam Vital Signs: Last Vital Signs Pulse 87 05/30/24 09:53 BP 126/68 05/30/24 09:53 Pulse Ox 94 05/30/24 09:53 Oxygen Delivery Method Room Air 05/30/24 09:53 BMI result Body Mass Index 26.3 Const General: cooperative, comfortable, no acute distress, well developed and alert Orientation/consciousness: patient oriented x3 Limitations: no limitations HEENT Head: Yes normal to inspection, Yes normocephalic and Yes atraumatic Ears: hearing grossly normal bilaterally and external ears normal Eyes General: appearance normal, both eyes and all related structures Eyelids: Yes eyelids normal Sclerae: sclerae normal EOM: EOMs intact bilaterally Neck Neck: Yes normal visual inspection and Yes no lymphadenopathy Lymphatic: no lymphadenopathy noted Chest Chest palpation & inspection: normal inspection of the chest Resp Effort & Inspection: normal respiratory effort, able to speak in complete sentences, no audible wheezes, no cough, no stridor, not tachypneic, no tripod positioning and no use of accessory muscles Auscultation: crackles on the right at the base Cardio Jugular venous distension: no JVD Rate: regular rate Rhythm: regular rhythm Skin Other: warm, dry General skin exam: no rashes or lesions noted Neuro General: patient oriented x3 Cranial nerves: Yes Normal hearing present Cognition (Neuro): normal cognition Gait exam (Neuro): Normal gait present Extrem General: Yes normal to inspection, Yes capillary refill normal, Yes no clubbing, cyanosis or edema and Yes no pedal edema Psych Appearance: grossly normal and well kempt Speech and movement: Normal speech and movement present and Clear speech present Affect: normal affect Attitude: cooperative Thought process: Normal thought process present Thought content: Normal thought content present Insight: Good insight present (Psych) Judgement: Good judgement present (Psych) Assessment & Plan Assessment & Plan (1) Asthma: Code(s): J45.909 - Unspecified asthma, uncomplicated Category: Medical (2) Dyspnea: Code(s): R06.00 - Dyspnea, unspecified Category: Medical Plan Edward reports suboptimal effect with Advair, will switch to Trelegy. On exam patient with RLL inspiratory crackles, will send for CXR today. Denies BLE edema or orthopnea. Denies chest congestion, cough, fevers or chills. All questions were answered and patient is in agreement of plan. Will follow-up in 6-8 weeks or sooner if needed. Orders: Orders XR chest 2V Today R05.9 - Cough, unspecified Medications: Refilled opecibkrcnv-[id number] 200-62.5-25 mcg (Trelegy Ellipta) 1 ea PO DAILY 180 ea 1RF Coding Level of Care Code Est Pt Level 4 (83109) Diagnoses Asthma J45.909 Dyspnea R06.00
[2024-05-30 09:53] VITALS: BP 126/68; PULSE 87; O2SAT 94; BMI 26.3
== END 2024-05-30 10:10 | disposition home or self-care (01) ==
PROVIDERS: PCP Nurse Practitioner Primary Care; Visit Provider Nurse Practitioner Family
DX: J45.909 Unspecified asthma, uncomplicated (principal); R06.00 Dyspnea, unspecified
CPT/HCPCS: 99214

== ENCOUNTER 2024-06-05 09:13 | Outpatient (REF) | payer MEDICARE, SELFPAY ==
--- NOTE | ~2024-06-05 | CT_ITS ---
EXAMINATION: CT CHEST WITHOUT CONTRAST CLINICAL INFORMATION: Pleural effusion COMPARISON: Chest radiograph 05/30/2024 TECHNIQUE: Multidetector volumetric CT imaging of the chest was done. Axial MIP volume rendering provided. Sagittal and coronal reformatted images were obtained. This CT examination was performed using dose optimization techniques as appropriate, variously including the following: *Automated exposure control *Adjustment of mA and/or kV according to patient size (this includes techniques or standardized protocols for targeted exams where dose is matched to indication/reason for exam; i.e. extremities or head) *Use of iterative reconstruction technique DLP: 192 mGy-cm FINDINGS: ELECTRICAL SYSTEMS DESIGNER: Marked elevation of the right hemidiaphragm. LUNGS: There is right basilar atelectasis along with some traction bronchiectasis. There is mild emphysema. No suspicious lung masses are seen. MEDIASTINUM: Heart size normal. No aortic aneurysm. No mediastinal lymphadenopathy CORONARY ARTERY CALCIFICATION: Present PLEURA: There is no pleural effusion. No pleural mass or thickening. AXILLA: No lymphadenopathy. UPPER ABDOMEN: There is Chila[place]iti anatomy with hepatic flexure interposed between the liver and diaphragm anteriorly. Multiple hypodensities are seen in the liver consistent with benign cysts. OSSEOUS STRUCTURES: Degenerative changes are present in the spine CT/CT chest wo IV con IMPRESSION: 1. Marked elevation of the right hemidiaphragm with right basilar atelectasis and traction bronchiectasis. 2. No pleural effusion. 3. Incidental note made of mild emphysema, benign hepatic cysts and degenerative changes in the spine. Fleischner guidelines were followed. Electronically signed by: Haroon Nagy MD 06/07/2024 08:29 AM SLAVA
== END 2024-06-05 09:14 | disposition home or self-care (01) ==
LOC: HO.CT 09:13
PROVIDERS: PCP Nurse Practitioner Primary Care; Visit Provider Nurse Practitioner Family
DX: J90 Pleural effusion, not elsewhere classified (principal)
CPT/HCPCS: 71250

== ENCOUNTER → 2024-07-18 10:40 | Outpatient (BNVA) | payer MEDICARE, SELFPAY | PROVIDERS: PCP Nurse Practitioner Primary Care; Visit Provider Nurse Practitioner Family | DX: J45.909 Unspecified asthma, uncomplicated (principal); R06.00 Dyspnea, unspecified | CPT/HCPCS: 99212 ==

== ENCOUNTER 2024-08-28 11:20 | Outpatient (REF) | payer MEDICARE, SELFPAY ==
--- NOTE | ~2024-08-28 | CT_ITS ---
EXAMINATION: CT ABDOMEN WITH IV CONTRAST HISTORY: Hernia COMPARISON: There are no prior studies for comparison. TECHNIQUE: CT scan of the abdomen was performed following administration of 85 mL Omnipaque 350 using standard departmental protocol. Coronal and sagittal reformatted images were generated and reviewed. Oral contrast material was not administered at the request of the referring physician. This CT exam was performed with one or more of the following dose reduction techniques: automated exposure control, adjustment of the mA and/or kV according to patient size, use of iterative reconstruction technique. DLP: 631 mGy-cm FINDINGS: LOWER CHEST: There is elevation of the right hemidiaphragm. There is airspace opacity at the right lung base consistent with subsegmental atelectasis. There is associated bronchiectasis. There is no pleural effusion. CARDIOVASCULATURE: The heart is normal in size. There is no pericardial effusion. LIVER: The liver is normal in size and contour. Multiple well-circumscribed hypodense foci are seen within the liver measuring up to 2.0 cm in size, most consistent with cysts. The hepatic and portal veins are patent. GALLBLADDER / BILE DUCTS: The gallbladder is unremarkable. There is no intra or extrahepatic biliary ductal dilatation. SPLEEN: The spleen is normal in size. No focal splenic lesion is identified. PANCREAS: There is a 1.3 cm cystic lesion in the body of the pancreas. ADRENAL GLANDS: Within normal limits. KIDNEYS/RETROPERITONEUM: No renal calculi are identified. There is no hydronephrosis. There are bilateral renal cysts measuring up to 3.8 cm on the right and 5.3 cm on the left. LYMPH NODES: No abdominal or pelvic lymphadenopathy. VASCULATURE: The abdominal aorta demonstrates atherosclerotic calcification, but is normal in caliber. MESENTERY/PERITONEUM: No free fluid. No masses. There is no free intraperitoneal gas. STOMACH: The stomach is collapsed, limiting evaluation. SMALL BOWEL: The visualized small bowel is normal in caliber. COLON: The patient is status post partial colectomy. APPENDIX: The appendix is not seen, however no inflammatory changes are seen adjacent to the cecum. BONES / SOFT TISSUES: There is diastasis of the rectus muscles at the level of the umbilicus. There is a partially visualized left inguinal hernia containing fat. CT/CT abdomen w IV con IMPRESSION: 1. Partially visualized left femoral hernia containing fat. 2. 1.3 cm cystic lesion in the body of the pancreas. This could be evaluated with MRI without and with contrast. 3. Diastasis of the rectus muscles at the level of the umbilicus. 4. Hepatic and bilateral renal cysts as described. Electronically signed by: Bereket Ford MD 08/28/2024 12:02 PM EDT
[2024-08-28] MEDS: iohexoL 350 MG/ML 100 ML INFUS..BTL IV (11:52)
--- OUTSIDE RECORDS SUMMARY | 2024-08-28 13:48 | XMS_ITS | Clinical Summary ---
Author Organization [facility] [address] [place] [address] Care Team Providers Care Deputy Juvenile Officer Name Role Phone Unavailable Primary Care Provider Unavailabl e Social History Tobacco Use Types Packs/Day Years Used Date Smoking Tobacco: Never Assessed Sex and Gender Information Value Date Recorded Sex Assigned at Not on file Legal Sex Male 10:34 PM EST Gender Identity Not on file Sexual Orientation Not on file Plan of Treatment Health Maintenance Due Date Last Done Comments DTaP,Tdap,and Td Vaccines (1 - Tdap) 1959 Pneumococcal Vaccine: 50+ Ye ars (1 of 1 - PCV) 01/27/1988 Zoster Vaccines (1 of 2) 01/27/1988 RSV Immunization Patients 60 + Years Old (1 - 1-dose 75+ series) 2013 Cholesterol Screening (Lipid Panel) 07/12/2023 Depression Screening 07/12/2023 Falls Risk Assessment 07/12/2023 Social Influencers of Health Screening 07/12/2023 COVID-19 Vaccine (1 - 2023-2 5 season) 2024 Influenza Vaccine (#1) 2024 HIB Vaccines Aged Out No longer eligi ble based on patient's age to complete this topic HPV Vaccines Aged Out No longer eligi ble based on patient's age to complete this topic Hepatitis A Vaccines Aged Out No long er eligible based on patient's age to complete this topic Hepatitis B Vaccines Aged Out No long er eligible based on patient's age to complete this topic IPV Vaccines Aged Out No longer eligi ble based on patient's age to complete this topic MMR Vaccines Aged Out No longer eligi ble based on patient's age to complete this topic Meningococcal ACWY Vaccine Aged Out N o longer eligible based on patient's age to complete this topic Meningococcal B Vacine Aged Out No lo nger eligible based on patient's age to complete this topic RSV Immunization Patients Un justin 20 months Aged Out No longer eligible b ased on patient's age to complete this topic Varicella Vaccines Aged Out No longer eligible based on patient's age to complete this topic
[2024-08-29 09:23] LABS: Creatinine POC 0.7 mg/dL (0.5-1.4); GFR POC > 60
== END 2024-08-28 11:21 | disposition home or self-care (01) ==
LOC: HO.CT 11:20
PROVIDERS: PCP Nurse Practitioner Primary Care; Visit Provider Nurse Practitioner Primary Care
DX: K44.9 Diaphragmatic hernia without obstruction or gangrene (principal); R06.09 Other forms of dyspnea
CPT/HCPCS: 74160; 82565; Q9967

== ENCOUNTER → 2024-08-28 11:29 | Outpatient (BNV) | payer MEDICARE, SELFPAY | PROVIDERS: PCP Nurse Practitioner Primary Care; Visit Provider Radiology Diagnostic Radiology | DX: K41.90 Unilateral femoral hernia, without obstruction or gangrene, not specified as recurrent (principal) | CPT/HCPCS: 74160 ==

== ENCOUNTER 2024-10-17 10:46 | Outpatient (AMB) | payer MEDICARE, SELFPAY ==
[2024-10-17 10:53] VITALS: BP 110/58; PULSE 103; O2SAT 94; BMI 26.1
--- NOTE | 2024-10-17 10:53 | A.OFFVIS_ITS ---
Vital Signs 10/17/24 10:53 Height 5 ft 11 in Weight 187 lb 2 oz BMI 26.1 BP 110/58 L Blood Pressure Location Rt brachial Position Sitting Pulse 103 H Pulse Source Pulse Oximeter Pulse Oximetry (%) 94 Oxygen Delivery Method Room Air Intake Visit Reasons: dyspnea Allergies Penicillins Allergy (Severe, Verified 10/17/24 10:55) unknown peanuts Allergy (Severe, Uncoded 10/17/24 10:55) Anaphylaxis HPI HPI dyspnea: Details: Jose is a pleasant 84 year old male, never smoker, with underlying asthma since childhood, prostate cancer s/p prostatectomy and bilateral orchiectomy 2007, chronic alcoholism in remission since 2020 and h/o SBO s/p colectomy. At the last visit, he was switched from Trelegy to Breztri due to cost of Trelegy. He notes minimal change in symptoms continues with dyspnea on exertion. Denies cough, chest tightness or wheezing. He does have a nebulizer but does not use. He also reports decrease in overall activity. He denies any visits to urgent care or hospitalizations since the last visit. [facility] Family History (Updated 10/19/23 @ 10:39 by Bran Guerrero MD) Father No problems noted. Mother No problems noted. Social History Alcohol intake: former Patient Tobacco Use Status: Never used Tobacco Review of Systems Const Denies chills, Denies excessive sweating, Denies fever(s), Denies headache(s) and Denies night sweats Eyes Denies dry eyes, Denies irritation and Denies itchy eyes ENT Reports Normal hearing present, Denies headache(s), Denies nasal congestion, Denies nasal discharge, Denies post nasal drip and Denies sore throat Card Denies chest pain, Denies chest pain at rest, Denies chest pain with activity, Denies claudication, Denies leg edema, Reports dyspnea on exertion, Denies orthopnea and Denies paroxysmal nocturnal dyspnea Resp Denies chest congestion, Denies cough, Denies excessive phlegm production, Denies pain on inspiration, Denies pain with cough, Reports dyspnea on exertion and Denies stridor Musc Denies myalgias Neuro Reports Normal hearing present and Denies headache(s) Endo Denies excessive sweating Joseph/Lymph Denies lymphadenopathy Aller/Immun Denies itchy eyes and Denies seasonal rhinorrhea Physical Exam Vital Signs: Last Vital Signs Pulse 103 H 10/17/24 10:53 BP 110/58 L 10/17/24 10:53 Pulse Ox 94 10/17/24 10:53 Oxygen Delivery Method Room Air 10/17/24 10:53 BMI result Body Mass Index 26.1 Const General: cooperative, comfortable, no acute distress, well developed and alert Orientation/consciousness: patient oriented x3 Limitations: no limitations HEENT Head: Yes normal to inspection, Yes normocephalic and Yes atraumatic Ears: hearing grossly normal bilaterally and external ears normal Eyes General: appearance normal, both eyes and all related structures Eyelids: Yes eyelids normal Sclerae: sclerae normal EOM: EOMs intact bilaterally Neck Neck: Yes normal visual inspection and Yes no lymphadenopathy Lymphatic: no lymphadenopathy noted Chest Chest palpation & inspection: normal inspection of the chest Resp Effort & Inspection: normal respiratory effort, able to speak in complete sentences, no audible wheezes, no cough, no stridor, not tachypneic, no tripod positioning and no use of accessory muscles Auscultation: diminished lung sounds Cardio Jugular venous distension: no JVD Rate: regular rate Rhythm: regular rhythm Skin Other: warm, dry General skin exam: no rashes or lesions noted Neuro General: patient oriented x3 Cranial nerves: Yes Normal hearing present Cognition (Neuro): normal cognition Gait exam (Neuro): Normal gait present Extrem Other: 2+ pitting edema BLE Psych Appearance: grossly normal and well kempt Speech and movement: Normal speech and movement present and Clear speech present Affect: normal affect Attitude: cooperative Thought process: Normal thought process present Thought content: Normal thought content present Insight: Good insight present (Psych) Judgement: Good judgement present (Psych) Assessment & Plan Assessment & Plan (1) Asthma: Code(s): J45.909 - Unspecified asthma, uncomplicated Category: Medical (2) Dyspnea: Code(s): R06.00 - Dyspnea, unspecified Category: Medical Plan Recommended adding DuoNeb to regimen. Aware to call if symptoms do not improve. Prior chest CT revealed marked elevation of the right hemidiaphragm and discussed referral to thoracic surgery to further assess however he continues to decline. Patient also has upcoming appt with cardiology to assess for any underlying cardiac component to dyspnea, as patient reports ongoing orthopnea, intermittent BLE edema and prior pleural effusion on CXR. All questions were answered and patient is in agreement of plan. Will follow-up in 3 months or sooner if needed. Medications: New ipratropium-albuterol 0.5 mg-3 mg(2.5 mg base)/3 mL 3 mL inhalation Q6H PRN 180 mL 0RF wheezing Coding Level of Care Code Est Pt Level 4 (50582) Diagnoses Asthma J45.909 Dyspnea R06.00
--- OUTSIDE RECORDS SUMMARY | 2024-10-17 12:07 | XMS_ITS | Clinical Summary ---
Author Organization [facility] Address [address] [place] [address] Care Team Providers Care Demolitionist Name Role Phone Unavailable Primary Care Provider [...] Vaccines (1 of 2) 01/27/1988 RSV Immunization Adult Patie nts (1 - 1-dose 75+ series) 2013 Cholesterol Screening (Lipid Panel) 07/12/2023 Depression Screening 07/12/2023 Falls Risk Assessment 07/12/2023 Social Influencers of Health Screening 07/12/2023 COVID-19 Vaccine ( - 2023-2 5 season) 2024 Influenza Vaccine (Season Ended) 2025 HIB Vaccines Aged Out No longer eligi [...] age to complete this topic Meningococcal B Vaccine Aged Out No l onger eligible based on patient's age to complete this topic RSV Immunization Patients Un justin 20 months Aged Out No longer eligible b ased on patient's age to complete this topic Varicella Vaccines Aged Out No longer eligible based on patient's age to complete this topic
== END 2024-10-17 11:32 | disposition home or self-care (01) ==
LOC: HO.HPSW 10:47
PROVIDERS: PCP Nurse Practitioner Primary Care; Visit Provider Nurse Practitioner Family
DX: J45.909 Unspecified asthma, uncomplicated (principal); R06.00 Dyspnea, unspecified
CPT/HCPCS: 99214

== ENCOUNTER → 2024-10-17 10:46 | Outpatient (BNVA) | payer MEDICARE, SELFPAY | PROVIDERS: PCP Nurse Practitioner Primary Care; Visit Provider Nurse Practitioner Family | DX: J45.909 Unspecified asthma, uncomplicated (principal); R06.00 Dyspnea, unspecified | CPT/HCPCS: 99212 ==

== ENCOUNTER → 2024-11-12 13:43 | Outpatient (REF) | payer MEDICARE, SELFPAY ==
--- NOTE | 2024-11-12 13:47 | CA_ITS ---
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 The visually estimated ejection fraction is between 60-65%. - No obvious valvular pathology seen on this study. - Ascending aorta not well visualized. In the proximal portion, measures about 4.2 cm, adjacent to the sino-tubular ridge. Findings Procedure Information The quality of the study was technically difficult. The study quality is limited by lung artifact. Left Ventricle Normal left ventricular cavity size. There is normal left ventricular wall thickness. The left ventricular systolic function is normal. The visually estimated ejection fraction is between 60-65%. There is no evidence of regional wall motion abnormalities. Diastolic function is normal for age. Right Ventricle Mildly increased right ventricular cavity size. There is normal right ventricular systolic function. Atria Both atria are normal in size. Aortic Valve There is a normal trileaflet aortic valve. There is no aortic valve stenosis. There is no aortic valve regurgitation. Mitral Valve There is mild anterior mitral leaflet thickening. There is no mitral valve regurgitation. There is no mitral valve stenosis. Pulmonic Valve The pulmonic valve is likely normal. Tricuspid Valve There is trace tricuspid valve regurgitation. There is no evidence of pulmonary hypertension. Great Vessels The aortic arch is normal in size. Ascending aorta not well visualized. In the proximal portion adjacent to sino-tubular ridge, measures about 4.2 cm. Venous The inferior vena cava was not well visualized. Pericardium/Pleural There is no evidence of pericardial effusion. Prior Study Comparison Changes noted compared to prior study dated: 07/04/2023. Slight increase in ascending aortic size, but could also be technical. Recommendations, Care & Conclusions No obvious valvular pathology seen on this study. Measurements 2D Linear Measurements IVSd: 0.76 0.6-0.9/0.6-1.0 cm LVIDd: 4.37 3.9-5.3/4.2-5.9 cm LVIDd Index: 2.12 2.4-3.2/2.2-3.1 cm/m2 LVIDs: 2.85 2.0-3.6 cm LVPWd: 0.87 0.7-1.1 cm LA Diam: 2.80 2.7-3.8/3.0-4.0 cm LAIDs Index: 1.36 1.5-2.3 cm/m2 LV Mass: 138.19 67-162/88-224 g LV Mass Index: 67.08 43-95/49-115 g/m2 LVOT Diam: 2.10 3.0+(-)1.3 cm Mitral Valve MV Pk E: 0.67 MV PK A: 0.96 MV Decel Time: 128.00 E/A: 0.70 E'Lateral: 15.40 E'Medial: 6.29 E/E' Med: 10.60 E/E' Lat: 4.30 PHT: 37.00 MVA PHT: 5.95 Decel [place]: 5.21 Aortic Valve AoV Pk Jp: 1.06 AoV Mn Jp: 0.76 AoV VTI: 0.18 AoV Pk Grad: 4.00 Aov Mn Grad: 3.00 ROSANA Cont.VTI: 3.44 LVOT LVOT Pk Jp: 1.11 LVOT Mn Jp: 0.78 LVOT VTI: 0.18 LVOT Pk Grad: 5.00 LVOT Mn Grad: 3.00 LVOT Diam: 2.10 LVOT Area: 3.46 Diastolic Function MV Pk E: 0.67 MV Pk A: 0.96 E/A: 0.70 E'Medial: 6.29 E/E' Med: 10.60 E' Laterial: 15.40 E/E' Lat: 4.30 Right Ventricle TAPSE (mm): 18.90 TVS' Jp: 12.10 Tricuspid Valve TR Pk Jp: 2.32 TR Pk Grad: 22.00 Great Vessels Aorta Sinus of Valsalva: 4.00 2.0-3.5 cm Ao Asc: 4.20 2.1-3.4 cm Ao Arch: 3.20 Pulmonary Valve PV Pk Jp: 0.77 Peak PV Grad: 2.00 Updated in Other Vendor System with Status of Final Bran Guerrero MD electronically signed on 11/13/2024 2:07:56 PM with status of Final
== END ==
LOC: HO.CARD 13:43
PROVIDERS: PCP Nurse Practitioner Primary Care; Visit Provider Internal Medicine
DX: I77.819 Aortic ectasia, unspecified site (principal)
CPT/HCPCS: 93306

== ENCOUNTER → 2024-11-12 13:47 | Outpatient (BNV) | payer MEDICARE, SELFPAY | PROVIDERS: PCP Nurse Practitioner Primary Care; Visit Provider Internal Medicine | DX: I77.810 Thoracic aortic ectasia (principal) | CPT/HCPCS: 93306 ==

== ENCOUNTER 2024-12-05 13:02 | Outpatient (AMB) | payer MEDICARE, SELFPAY ==
[2024-12-05 13:09] VITALS: BP 104/60; PULSE 110; BMI 24.9
--- NOTE | 2024-12-05 13:09 | MHC.OFFVIS ---
Vital Signs 12/05/24 13:09 Height 5 ft 11 in Weight 178 lb 9.191 oz BMI 24.9 BP 104/60 Blood Pressure Location Lt brachial Position Sitting Pulse 110 H Pulse Source Monitor Intake Visit Reasons: 1 yr f/up-echo Allergies Penicillins Allergy (Severe, Verified 10/17/24 10:55) unknown peanuts Allergy (Severe, Uncoded 10/17/24 10:55) Anaphylaxis Medication List - Last Reconciled 12/05/24 by Bran Guerrero MD albuterol sulfate 90 mcg/actuation inhalation epymxzwhvs-glldrpcv-qoxnxamvuc 160-9-4.8 mcg/actuation (Breztri Aerosphere) 2 inhalations inhalation BID fluoxetine 10 mg PO DAILY ipratropium-albuterol 0.5 mg-3 mg(2.5 mg base)/3 mL 3 mL inhalation Q6H PRN levothyroxine 75 mcg PO DAILY lorazepam 0.5 mg PO BID PRN HPI Comments Details: Jose returns for follow-up. In the past he was referred for mild ascending aortic dilatation. Patient himself denies any history of coronary disease myocardial infarction cardiomyopathy or anything else of concern. He has had asthma for numerous decades but he states for the last few years he has been more short of breath than his usual. However, that has been stable with no acute changes recently. He does not have any angina. No other concerns. [facility] Family History (Updated 10/19/23 @ 10:39 by Bran Guerrero MD) Father No problems noted. Mother No problems noted. Social History Alcohol intake: former Patient Tobacco Use Status: Never used Tobacco Review of Systems Const All systems reviewed & are unremarkable except as noted in HPI and below Reports as per HPI and Reports no additional complaints Eyes Reports as per HPI and Denies no additional complaints ENT Denies no additional complaints and Reports as per HPI Card Reports as per HPI, Reports no additional complaints, Denies acrocyanosis, Denies chest pain, Denies leg edema, Denies lightheadedness, Denies palpitations and Reports dyspnea Resp Reports as per HPI, Denies no additional complaints and Reports dyspnea GI Reports as per HPI and Denies no additional complaints Reports no additional complaints and Reports as per HPI Musc Reports no additional complaints and Reports as per HPI Skin/Breast Reports system reviewed and no additional complaints, except as documented Neuro Reports no additional complaints and Reports as per HPI Psych Reports no additional complaints and Reports as per HPI Endo Reports no additional complaints, Reports as per HPI and Denies palpitations Joseph/Lymph Reports no additional complaints and Reports as per HPI Aller/Immun Reports no additional complaints and Reports as per HPI Physical Exam Vital Signs: Last Vital Signs Pulse 110 H 12/05/24 13:09 BP 104/60 12/05/24 13:09 BMI result Body Mass Index 24.9 Const General: comfortable and no acute distress Orientation/consciousness: patient oriented x3 HEENT Other: Unremarkable Head: Yes normal to inspection Neck Neck: Yes normal visual inspection Chest Chest palpation & inspection: normal inspection of the chest Resp Auscultation: clear to auscultation bilaterally Cardio Palpation: normal PMI Heart sounds: S1 normal heart sound present, S2 normal heart sound present, no gallops, no murmurs and no rubs GI Palpation (GI): Soft to palpation Back/Spine/Pelvis Other: unremarkable Skin General skin exam: no rashes or lesions noted Neuro General: patient oriented x3 Extrem General: Yes normal to inspection Psych Mental Status: mental status grossly normal Office Procedures EKG Details: EKG with sinus tachycardia at 110/Min; 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 T inversions in the inferior leads. Similar to last EKG. [id number], Complete Assessment & Plan Assessment & Plan (1) Dyspnea: Code(s): R06.00 - Dyspnea, unspecified Category: Medical Plan: EKGs abnormal but unchanged from last year. In the echocardiogram, LVEF is 60-65% with normal diastolic function. No evidence of pulmonary hypertension. Myocardial perfusion imaging study shows likely normal perfusion. In the chest CT scan, there is marked elevation of right hemidiaphragm with right basilar atelectasis and traction bronchiectasis. Mild emphysema. Overall, shortness of breath is less likely to be cardiac in nature. Could be related to asthma, elevated right hemidiaphragm. Sinus tachycardia likely compensatory. We discussed about these today. Again as mentioned, no changes in symptoms in the last few years. 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 In the previous study, it was 4 cm. No aneurysmal changes described in the CTA. At his age, unlikely to be of clinical significance. Plan Discussion Notes I discussed with the patient that his shortness of breath is likely due to multiple factors, including an elevated diaphragm and less likely heart related. We reviewed the findings of mildly enlarged aorta and that it has got no major significance at this time. Patient was informed and verbally consented to the use of an ambient scribe for clinic note documentation during this visit. 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 - Follow up with imaging studies as recommended by the healthcare provider. - Avoid strenuous activities that exacerbate shortness of breath. Coding Level of Care Code Est Pt Level 4 (72761) Diagnoses Dyspnea R06.00 Aortic dilatation I77.819 CPT Codes EKG - CPT: 35046-[id number], Complete ([id number])
--- OUTSIDE RECORDS SUMMARY | 2024-12-05 15:14 | XMS_ITS | Data Portability ---
Author Organization [place] [facility] Address [address] [place] [address] Care Team Providers Care Spider Assembler Name Role Phone CHARLIE SANTIZO Primary Care Provider [facility] OTHER Assessment Encounter Date Assessment Date Assessment LastModified by Organization Details LastModified Time 01/25/2019 01/25/2019 Overview/History : Pt is an 78yo M with PMH sig for Alcoholism, Hypothyroidism, HTN, Asthma, and Depression. Pt states he hasn't had a BM in about a week. He denies taking anything OTC to promote a BM. He states he feels the urge to go but is unable to move his bowels. He states his nutrition is poor. He mostly drinks Milk and at least a 5th of Vodka a day. He states he only eats the 1 meal a day brought to him by meals on wheels. Pt states that he is currently only taking his inhalers. He states his nutrition and ETOH consumption has been this way since his in October. He denies any abd pain, hx of bowel obstruction, blood in stool, n/v. Pt denies any ETOH yet today Exam: Pt is A/Ox3, not intoxicated during visit, VSS, HRR, resp reg and unlabored on RA, lungs CTA bilat, abd soft, non-tender, non-distended, no hepatosplenomegall y, no peritoneal s/s, +BSx4, large amount of firm stool noted in the Rectal vault, neg hemoccult, fleets enema given with good effect, sm BM promoted during visit. DDx considered, but not limited to: Constipation: likely given poor nutrition and pt's report of sx. Bowel Obstruction: possible but low suspicion given lack of pain and presence of stool in rectal vault and good bowel sounds Panceratitis: unlikely given lack of abd pain, n/v/d. Work up/Results: Hemoccult: neg Plan/Discussion: Pt advised to decrease ETOH intake and encouraged to take meds as prescribed. Pt verbalized understanding. Teaching done regarding causes of constipation and approprate management. Advised pt that he may have the urge to move his bowels for several hours d/t the effects of the enema. Recommended use of Colace or Senna-S if needed to stimulate the upper GI tract to promote further BM. Patients PCP contacted and updated on patient status. Patient verbalized understanding of discharge instructions and when to follow up with PCP/911/ED as needed. Patient in agreement with current plan and treatment. Time On Scene with Patient: 00:38:42 [email or web address] Not available 01/25/2019 14:24:30 04/26/2019 04/26/2019 Overview/History : 79-year-old male with history of asthma, alcoholism, with 2 days of constipation, abdominal pain, distention, nausea, vomiting. Report symptoms worsened today. Denies chest pain, palpitations, dizziness, rashes, itching, urinary difficulty. Reports shortness of breath for which he used albuterol approximately 4 hours prior to exam. States stopped taking citalopram 1 week ago and stopped drinking alcohol 10 days ago. Exam: Elderly male lying in a recliner, afebrile, tachycardic. Abdomen distended, firm, with pain to palpation about the LLQ, tender to palpation about the LUQ and RUQ, no RLQ tenderness noted. EKG with ST depressions in V3, V4, V5 4. Lungs clear, bowel sounds normoactive. DDx considered, but not limited to: Given ST changes on ECG, nausea, vomiting, shortness of breath, would consider ACS. Consider bowel obstruction or abdominal mass given constipation particularly in light of the patient's chronic alcoholism. Consider possible withdrawal symptoms from alcohol and SSRI. Work up/Results: Plan/Discussion: Patient was transferred to [facility] ED via EMS, expect called. Patients PCP contacted and updated on patient status. Patient verbalized understanding of discharge instructions and when to follow up with PCP/911/ED as needed. Patient in agreement with current plan and treatment. Time On Scene with Patient: 00:52:16 - Referred - Point of Care: Emergency Department [email or web address] Not available 04/26/2019 21:51:32 10/19/2019 10/19/2019 Overview/History : Pt is an 79yo M with PMH sig for HTN, Asthma and ETOH abuse. Pt reports that he has not been eating well and drinks mostly water, mild and ETOH. Last ETOH was this morning and about 4oz of Vodka. Pt reports last BM was 13 days ago and it was all liquid at that time. Reports he has been SOB the last few days as well. Denies cough, URI sx, n/v. Exam: Pt is A/Ox3, non-toxic appearing, VSS, HRR, resp reg and unlabored on RA, lungs pos for faint rhonchi in the bases. Abd is soft, distended, +BSx4, mild tenderness to the lower abd. DDx considered, but not limited to: Bowel Obstruction: likely given no BM in 13 days and last BM was only liquid stool COVID: possible given low grade temp, SOB, hypoxia and faint rhonchi PNA: possible given low grade temp, SOB, hypoxia, and faint rhonchi Bowel perferation: unlikely given only mild discomfort with palation of the lower abd, pt is non-toxic appearing. Work up/Results: escalated to the ER Plan/Discussion: Pt escalated to the ER for concern of bowel obstruction given LBM was 13 days ago and only liquid stool at that time. Pt also reports SOB and has low Po2 on exam and faint rhonchi in the bases. 911 called and report given to EMS on scene. Patients PCP contacted and updated on patient status. Patient verbalized understanding of discharge instructions and when to follow up with PCP/911/ED as needed. Patient in agreement with current plan and treatment. In order to obtain further information and compare any laboratory results/values, I have accessed old patient records. This information was pertinent in my medical decision making today. [email or web address] Not available 10/19/2019 19:14:31 12/28/2019 12/28/2019 Overview/History : Pt is an 79yo M with PMH sig for hypothyroidism, depression and ETOH abuse. Pt reports non-complince with his levothyroxine and issues with chronic constipation. He reports requiring surgical disempaction in October and November after no BM for over 2 weeks. He states he is trying to stay a head of quality this time. Reports last BM was about 5 days ago. He has been taking metamucil daily and has taken some MOM and colace today without effect. He denies any abd pain and/or n/v. Exam: Pt is A/Ox3, non-toxic appearing, VSS, HRR, resp reg and unlabored on RA, lungs CTA bilat. Abd is soft, non-distended, non-tender, +BSx4. Pt declined rectal exam DDx considered, but not limited to: Constipation: likely d/t slow motility r/t non-compliance with levothyroxine. Fecal Impaction: possible, has only been 5 days since LBM, pt went over 2 weeks without a BM before seeking care the last 2 times SBO: unlikely as pt has been treated twice now for severe constipation and has had imaging and colonscopy that r/o SBO, was reviewed by this STACY at time of visit. Work up/Results: no further work up indicated at this time. Plan/Discussion: Pt's recent hospitalization less than a month ago for the same issue were reviewed. Pt has been non-complient with taking his levothyroxine and has poor nutrition and has been having severe constipation that has required surgical disempaction 2 months in a row. Pt is attempting to catch it in time. Pt given Mag Citrate to help as LBM was 5 days ago. Lactulose sent in to help with constipation as well. Stressed the importance of taking his levothyroxine to prevent worsening constipation and repeat visit to the hospital. Pt verbalized understanding. Pt advised if he has no BM in 24-48hrs to reach back out to and/or report to the ER. Patients PCP contacted and updated on patient status. Patient verbalized understanding of discharge instructions and when to follow up with PCP/911/ED as needed. Patient in agreement with current plan and treatment. In order to obtain further information and compare any laboratory results/values, I have accessed patient records on the [employer]. This information was pertinent in my medical decision making today. Time On Scene with Patient: 00:24:35 [email or web address] Not available 12/28/2019 21:27:19 01/04/2020 01/04/2020 Overview/History : 79-year-old male with past medical history significant for alcoholism, hypertension, depression, asthma, and prostate cancer status post radical prostatectomy and 2 recent hospitalizations for fecal impaction status post surgical disimpaction. He is known to [facility] but new to this provider. He presents for concerns of constipation. He states that he has not had a bowel movement since the Tuesday after being seen by [facility] on Tuesday for the same complaint. However he states now he is leaking. He denies any blood or melena. He states that he has resumed his thyroid medication as prescribed. He denies any stomach pain but does have a feeling of fullness. He was able to pass gas. Has a good appetite and is hydrating well. Although he admits to a diet low in fiber. He does take a daily Metamucil supplement. As well as polyethylene glycol and recently prescribed lactulose and mag citrate. Exam: afebrile, hemodynamically stable. GENERAL: well developed, well nourished, appears stated age, sitting comfortably in no acute distress. RESP: normal I:E, clear to auscultation bilaterally, no wheezes, rhonchi, or rales. CARDIO: RRR, normal S1, S2, no murmurs, rubs, or gallops, radial pulses 2+ bilaterally. ABD: soft, moderately distended, non-tender, stool in ascending and descending colon, transverse and descending colon tympanitic to percussion, RLQ and LLQ dull to percussion. RECTAL: normal sphincter tone, able to bear down, soft brown stool in rectal vault and sigmoid colon, pt incontinent of soft stool in diaper, no blood, mucus, fissures, hemorrhoids, or lesions. DDx considered, but not limited to: constipation - likely given pt's history and intermittent compliance, last BM 5 days ago. complete bowel obstruction - unlikely, pt passing flatus and loose stool. partial bowel obstruction - possible given distention and constipation but no pain. colitis - unlikely with no abdominal tenderness. volvulous - unlikely without abdominal pain. fecal impaction - possible but stool in rectum is soft. Work up/Results: will obtain abdominal XR to r/o obstruction and further fecal impaction. Plan/Discussion: Pt was disimpacted and soft stool removed from rectal vault, there is still soft stool in the rectum and sigmoid colon. Continue current bowel regimen and will add docusate senna. Will obtain abdominal plain film to r/o obstruction and further fecal impaction which I feel is less likely after successful disimpaction. Pt advised if he develops abdominal pain, nausea or vomiting to go to the ER or call 911 as will likely need surgical disimpaction again. Pt educated to adhere to high fiber diet, hydration, bowel regimen, and to walk more. The patient is advised to make an appt with PCP in 3-5 days to discuss ongoing symptoms/ further management. The patient is also advised to go to the ED immediately for any worsening symptoms. The patient understood and agreed with this plan. The patient was given discharge instructions and all questions were answered prior to DH team departure. In order to obtain further information and compare any laboratory results/values, I have accessed old patient records. This information was pertinent in my medical decision making today. [email or web address] Not available 01/04/2020 17:16:20 Plan of Treatment Reminders Order Date Submit Date Provider Last Modified By Organization Details Last Modified Time Details Appointments None recorded. Lab fecal occult blood, stool [email or web address] [facility], [address] [place] [address], [id number], 9 14:06:48 Referral None recorded. Procedures None recorded. Surgeries None recorded. Imaging XR, abdomen, 1 view 2019 020 [facility] ([facility]), [address] [facility], [place], [address], 0 18:11:15 Medication Orders Senna with Docusate Sodium 8.6 mg-50 mg tablet 2019 020 [email or web address] Not available 0 23:29:56 magnesium citrate oral solution 2019 020 [email or web address] Not available 0 23:29:56 lactulose 10 gram/15 mL oral solution 2019 020 Not available 0 23:29:56 Fleet Enema 19 gram-7 gram/118 mL 2018 019 [email or web address] Not available 9 14:06:48 Patient TargetsNo targets recorded. Patient Instructions Encounter Date Encounter Id Patient Instructions Last Modified By Organization Details Last Modified Time 01/25/2019 [id number] Thank you for yo ur visit with [facility] today. We cannot always find the exact cause of your symptoms during your initial visit. You were seen today for constipation, your stool was checked to make sure there was no bleeding within your GI tract and this test was negative for blood. You were found to have a large amount of firm stool in your rectal vault. You were given a Fleets enema with good effect, it prompted a BM. It may take some time for your bowels to fully evacuate and you may feel the urge to move your bowels several times today, this is related to the Fleets stimulating the colon. You may take Colace or Senna-S by mouth if needed to promte more BM to help move the stool from the upper GI tract as needed. Drinking lots of water, eating high fiber foods and walking all help promote a BM. If you have severe abdominal pain and/or cramping please report to the ED for further evaluation. Please follow up with your primary care provider or specialist as needed to be rechecked or seek medical attention if your symptoms do not go away or get worse. If you develop any new or worsening symptoms and need after hours care, please go to nearest ER and/or call 911. If you have additional concerns or develop a change in your condition between 8am-10pm, please call [facility] at [phone] to help navigate your care. [email or web address] Not available 01/25/2019 14:09:55 10/19/2019 [id number] Thank you for yo ur visit with [facility] today. You were seen today for abdominal pain, nausea, vomiting and/or diarrhea. Medications may have been administered and lab tests may have been performed. At this time, we do not see evidence of a serious surgical or infectious cause of your symptoms. However, lab tests and an evaluation cannot always exclude appendicitis or other serious causes of abdominal pain. Please see a medical professional in 12-24 hours to be re-examined. Seek immediate medical attention for increased pain, vomiting or fever. If you develop any new or worsening symptoms and need after hours care, please go to nearest ER and/or call 911. If you have additional concerns or develop a change in your condition between 8am-10pm, please call [facility] at [phone] to help navigate your care. [email or web address] Not available 10/19/2019 18:44:28 12/28/2019 [id number] [facility] You were seen today for abdominal pain, nausea, vomiting and/or diarrhea. Medications may have been administered and lab tests may have been performed. At this time, we do not see evidence of a serious surgical or infectious cause of your symptoms. However, lab tests and an evaluation cannot always exclude appendicitis or other serious causes of abdominal pain. Please see a medical professional in 12-24 hours to be re-examined. Seek immediate medical attention for increased pain, vomiting or fever. If you develop any new or worsening symptoms and need after hours care, please go to nearest ER and/or call 911. If you have additional concerns or develop a change in your condition between 8am-10pm, please call [facility] at [phone] to help navigate your care. [email or web address] Not available 12/28/2019 18:45:14 01/04/2020 [id number] constipation: ca re instructions [email or web address] Not available 01/04/2020 23:29:56 constipation elimination foods [email or web address] Not available 01/04/2020 23:29:56 You may have a fecal impaction. We will check an abdominal Xray and call you with the results. Prescription sent for Docusate Senna, take 2 tablets once a day for no more than 7 days. Continue rest of medications as prescribed. Increase fiber intake with fruits and vegetables and hydrate. If you develop pain, nausea, vomiting, or are unable to pass gas then you need to go to the hospital. [email or web address] Not available 01/04/2020 13:51:08 Reason for Referral None Reported. Results Created Date Observation Date Name Description Value Unit Range Abnormal Flag Note LastModifiedBy Organization Detail LastModifiedTime 01/26/2001/25/2019 fecal occul t blood , stool Occult Blood negati ve Not Available [facility] [address], [place], [address], 01/25/2019 13:56:40 01/05/20 20 01/05/2020 XR, abdom en, 1 view XRAY ABDOME N 1 VIEW Compar hernan: 2017 FINDIN GS: There is mild coloni c dilata tion consis tent with ileus. T There is modera te amount of stool in colon and rectum . CONCLU DARRELL: Mild coloni c ileus. ELECTR ONICAL LY SIGNED BY SUZIE LARSON D.O. 020 6:04:0 9 PM EDT. XRAY ABDOME N 1 VIEW Compar hernan: 2017 Result s: There is mild coloni c dilata tion consis tent with ileus. T There is modera te amount of stool in colon and rectum . Conclu darrell: Mild coloni c ileus. Electr onical ly signed by SUZIE LARSON D.O. 020 6:04:0 9 PM EDT. [email or web address] [facility] [address], [place], [address], 01/06/2020 08:32:03 Result Notes Documentation Provider Name and Address Organization Details Recorded Time Xr, Abdomen, 1 View : XRAY ABDOMEN 1 VIEW Comparison: 05/03/2018 FINDINGS: There is mild colonic dilatation consistent with ileus. T There is moderate amount of stool in colon and rectum. CONCLUSION: Mild colonic ileus. ELECTRONICALLY SIGNED BY SUZIE LARSON D.O. 01/05/2020 6:04:09 PM EDT. XRAY ABDOMEN 1 VIEW Comparison: 05/03/2018 Results: There is mild colonic dilatation consistent with ileus. T There is moderate amount of stool in colon and rectum. Conclusion: Mild colonic ileus. Electronically signed by SUZIE LARSON D.O. 01/05/2020 6:04:09 PM EDT. LYNN AVILA NP [address] [place], [address], [place] [facility] 01/06/2020 08:32:03 Problems Name Problem SNOMED Code Status Onset Date Resolution Date Notes Provider Name and Address Organization Details Recorded Time Asthma 801444390 Active 019 KAILASH ISAAC NP [address] [place], [address] , [place] [facility] 9 13:38:46 Asthma 437832569 Active 020 Lev branch, [place] [facility] 0 23:29:55 Problem Notes None recorded. Procedures Surgical History Date Name Laterality Status Provider Name and Address Organization Details Recorded Time 01/04/20 20 Rectal Fecal Disimpaction - completed SARITHA OLIVER [address] [place], [address], [place] [facility] 01/04/2020 14:13:49 04/26/20 19 ECG Interpretation - completed SARITHA DOUGLASS [address], [place], [address], [place] [facility] 04/26/2019 21:46:23 Imaging Results None recorded. Procedure Notes None recorded. Medical Equipment None Reported. Allergies Allergen ID Allergen Name Allergen Category Reaction Reaction Severity Criticality Documentation Date Start Date Code Code System Note Provider Name and Address Organization Details Recorded Time 77999 Product containin g penicilli n (product) medicatio n Not available Not available Not available 01/25/2019 19463 8001 SNOMED KAILASH ISAAC NP [address] [place], [address], [place] [facility] 9 13:38:18 07727 peanut allergeni c extract food,medi cation Not available Not available Not available 04/26/2019 47502 8 RxNorm Lev branch, [place] [facility] 0 23:29:56 91637 Product containin g penicilli n (product) medicatio n Not available Not available Not available 04/26/2019 25727 8001 SNOMED Lev Kumari null, [place] [facility] 0 23:29:56 Medications Name Sig Start Date Stop Date Status Note LastModified by Organization Details LastModified Time levothyroxi ne 75 mcg tablet 12/27 completed Not Available Not Available Not Available Fleet Enema 19 gram-7 gram/118 mL administe red on scene. Time administr ated: 1345 2018 active Not Available Not Available Not Avai lable cephalexin 500 mg capsule 12/27 completed Not Available Not Available Not Available magnesium citrate oral solution 1 bottle PO administe red on scene. Time administe red: 1900 2019 active Not Available Not Available Not Avai lable polyethylen e glycol 3350 17 gram/dose oral powder active Not Available Not Available Not Available Robafen 100 mg/5 mL oral liquid 12/27 completed Not Available Not Available Not Available escitalopra m 5 mg tablet 12/27 completed Not Available Not Available Not Available lactulose 10 gram/15 mL oral solution TK 15 ML PO BID FOR 10 DAYS active Not Available Not Available No t Available citalopram 10/18 completed Not Available Not Available Not Available Colace 01/03 completed Not Available Not Available Not Available bisacodyl active Not Available Not Nazia ilable Not Available Proventil HFA active Not Available Not Available Not Available Metamucil active Not Available Not Nazia ilable Not Available Advair Diskus active Not Available Not Available Not Available ProAir HFA 90 mcg/actuati on aerosol inhaler INHALE 2 PUFFS PO EVERY 6 HOURS PRN active Not Available Not Available No t Available Stimulant Laxative Plus 8.6 mg-50 mg tablet TK 2 TS PO QD active Not Available Not Available No t Available Wixela Inhub 500 mcg-50 mcg/dose powder for inhalation USE 1 INHALATIO N PO TWICE D active Not Available Not Available No t Available Vitals Date Recorded Body temperature Oxygen saturation Oxygen saturation in Arterial blood by Pulse oximetry Respiratory rate Heart rate Systolic blood pressure Diastolic blood pressure Provider Name and Address Organization Details Last Updated DateTime 0 99 [degF] 90 % 90 % 26 /min 108 /min 140 mm[Hg] 92 mm[Hg] Lev Blandonson [place] [facility] 0 23:29:55 Date Recorded Oxygen saturation Oxygen saturation in Arterial blood by Pulse oximetry Heart rate Body temperature Respiratory rate Systolic blood pressure Diastolic blood pressure Provider Name and Address Organization Details Last Updated DateTime 0 93 % 93 % 63 /min 97.9 [degF] 22 /min 108 mm[Hg] 82 mm[Hg] Lev Blandonson [place] [facility] 0 23:29:55 Date Recorded Body temperature Oxygen saturation Oxygen saturation in Arterial blood by Pulse oximetry Heart rate Respiratory rate Systolic blood pressure Diastolic blood pressure Provider Name and Address Organization Details Last Updated DateTime 0 98.4 [degF] 95 % 95 % 97 /min 20 /min 108 mm[Hg] 72 mm[Hg] Lev Kumari [place] [facility] 0 23:29:55 Date Recorded Heart rate Body temperature Respiratory rate Oxygen saturation Oxygen saturation in Arterial blood by Pulse oximetry Systolic blood pressure Diastolic blood pressure Provider Name and Address Organization Details Last Updated DateTime 9 105 /min 97.7 [degF] 17 /min 95 % 95 % 140 mm[Hg] 78 mm[Hg] Not Available [facility] 9 13:44:47 Date Recorded Respiratory rate Oxygen saturation Oxygen saturation in Arterial blood by Pulse oximetry Heart rate Body temperature Systolic blood pressure Diastolic blood pressure Provider Name and Address Organization Details Last Updated DateTime 9 24 /min 91 % 91 % 112 /min 98.9 [degF] 128 mm[Hg] 92 mm[Hg] Lev Kumari [place] [facility] 0 23:29:55 Social History Question Answer Notes LastModified by Organizat ion Details LastModified Time Tobacco Smoking Status Never Smoker KAILASH ISAAC, CHUCKY [address], [place], [address], [place] [facility] 01/25/2019 13:40:13 Do You Have An Advance Directive? Yes Information not available 01/25/2019 What Is Your Code Status? Full Code Information not available 01/25/2019 Drugs Abused None Information not available 01/25/2019 How Many Days In The Past Year Have You Had A Heavy Drinking Consumption (4+ Female, 5+ Male)? 350 States He Drinks Heavily Daily, States He Is An Alcoholic, About 5th Day Information not available 01/25/2019 Within The Past 12 Months, Has It Happened That The Food You Bought Just Didn't Last And You Didn't Have Money To Get More. Normal Information not available 01/25/2019 Within The Past 12 Months, Have You Worried That Your Food Would Run Out Before You Got Money To Buy More. Yes Information not available 01/25/2019 Fall Risk: Do You Feel Unsteady When Standing Or Walking? Yes mike Information not available 01/25/2019 Marital Status [email or web address] Informatio n not available 01/25/2019 What Was The Date Of Your Most Recent Tobacco Screening? 01/25/2019 Information not available 2019 Sex: Unknown Functional Status Question Answer Note LastModified by Organizat ion Details LastModified Time Do you or have you ever used smokeless tobacco? Never used smokeless tobacco Information not available 01/04/2020 Do you or have you ever used e-cigarettes or vape? Never used electronic cigarettes [email or web address] Information not available 01/04/2020 Mental Status None recorded. Family History Relationship Description Onset Age of this Age Resolved Age Notes LastModified by Organization Details LastModified Time Mother Hypertensive disorder [email or web address] Not available 01/25 13:42:12 Mother No current problems or disability [email or web address] Not available 01/03 23:29:55 Father No current problems or disability Not available 01/03 23:29:55 Medical History Condition Response Coronary Artery Disease N COPD N Depression Y Diabetes N Cancer Y Stroke N Asthma Y High Cholesterol N Pulmonary Embolism N Hypertension Y Kidney Disease N Past Encounters Encounter ID Performer Location Encounter Start Date Encounter Closed Date Diagnosis/Indication Diagnosis SNOMED-CT Code Diagnosis ICD10 Code Diagnosis Note [id number] KAILASH ISAAC NP [facility] [address] [place] [address] 01/25/2019 13:36:43 01/25/2019 18:56:26 Constipation 06909239 K59.00 [id number] SARITHA DOUGLASS [facility] [address] [place] [address] 04/26/2019 20:24:56 04/26/2019 21:51:38 Tachycardia 5099635 R00.0 Abdominal pain 53613117 R10.9 Constipation 31102065 K5 9.00 [id number] KAILASH ISAAC NP [facility] [address] [place] [address] 10/19/2019 18:43:02 10/22/2019 16:06:14 Constipation 55105553 K59.00 [id number] KAILASH ISAAC NP [facility] [address] [place] [address] 12/28/2019 18:43:46 12/31/2019 18:05:32 Constipation 90345023 K59.00 Hypothyroidism 80358950 E03.9 [id number] SARITHA [facility]IVER [facility] [address] [place] [address] 01/04/2020 13:14:43 01/08/2020 14:37:04 Fecal impaction of colon 28181946 K56.41 Constipation 90150857 K5 9.00 Health Concerns Section Related Observation LastModified by Organization Detai ls LastModified Time None Recorded Concern Status LastModified by Organization Details LastModified Time None Recorded Advance Directives Directive Y: Payers Insurance Date Sequence Insurance Name Policy Number Policy Martinez Covered Member ID Martinez Member ID Guarantor Name 01/04/2020 1 *SELF PAY* Jose Jacob [id number] Jose Jacob 05/02/2020 2 WEB-TPA Jose Jacob [id number] Jose Jacob 01/04/2020 1 [place] [facility] Jose Jacob [id number] Jose Jacob 05/02/2020 1 [place] [facility] Jose Jacob [id number] Jose Jacob 01/04/2020 1 *SELF PAY* Jose Hong [id number] Jose Jacob 01/04/2020 1 [place] [facility] Jose Jacob [id number] Jose Jacob 01/04/2020 2 [facility] (MEDICARE SUPPLEMENT) Jose Jacob [id number] Jose Jacob 01/04/2020 2 [facility] (MEDICARE SUPPLEMENT) Jose Jacob [id number] Jose Jacob 05/02/2020 2 [facility] (MEDICARE SUPPLEMENT) Jose Jacob [id number] Jose Jacob 01/04/2020 2 UNSPECIFIED REMIT PAYOR Jose Jacob 01/04/2020 1 [place] [facility] Jose Jacob [id number] Jose Jacob Notes Date Note Type Note Provider Name and Address Organization Details Recorded Time 01/25/2019 text/html Pt states he has n't had a BM in about a week. States he drinks about a 5th of ETOH a day and eats about 1 meal a day from meals on wheels. Denies taking anything for the constipation. States he has had issues with constipation in the past. Denies any hx of small bowel obstruction. Pt reports he has the urge to go but is unable to evacuate his bowels. Pt states he hasn't been eating well since his , states that when meals on wheels doesn't come he often skips meals. Pt states he normally drinks Vodka. Pt states he drinks a lot of milk. Denies issues with lactose intolerance. Pt has pill bottles in the home for citalopram, levothyroxine, metoprolol, and vitamin B1 and Folic acid, but denies taking any of these meds at this time. KAILASH ISAAC NP [address] [place], [address], [place] [facility] 01/25/2019 14:24:34 04/26/2019 text/html 79-year-old male presents for evaluation of abdominal concerns. Reports 2 days of abdominal pain, distention, constipation and states worse today. States has had nausea and vomiting is uncertain about a fever. Denies chest pain, palpitations, dizziness, urinary difficulty. Reports shortness of breath although initially denies. Locates abdominal pain to the right upper quadrant and notes is constant but occasionally worsens throughout the day. Patient also has asthma and states last albuterol use was approximately 4 hours prior to exam. Patient also states he is an alcoholic, drinks 1/5 of vodka daily however, stopped cold turkey 10 days ago as he thought he was drinking too much and it was about time. Also has depression for which he takes citalopram and states he stopped taking that 7 days ago as well. Denies rashes, itching. SARITHA DOUGLASS [address], [place], [address], [place] [facility] 04/26/2019 21:51:36 10/19/2019 text/html Pt states his la st BM was about 13 days ago. Pt reports he isn't eating well. He is drinking a lot of water and milk. He is an alcoholic and last ETOH was this morning was vodka states prior to that it had been a couple of days without ETOH. Pt has Miralax, laxative. Pt is denies a previous bowel obstruction but reports that he has had severe constipation like this in the past. Pt reports he has been feeling SOB especially with movement. Pt reports hx of chronic asthma and denies any cigarette smoke. Pt denies any cough. Pt denies any n/v. Pt report that he is passing gas. Pt states about 13 days ago he took a bunch of laxative had a large volume of liquid stool and then it stopped. Denied any solid stool at that time. KAILASH ISAAC, CHUCKY [address], [place], [address], [place] [facility] 10/19/2019 19:31:17 12/28/2019 text/html Pt reports that his last BM was on Tuesday. Pt reports that he has been taking Metamucil daily. He has tried taking MOM and Colace without effect. States I might be leaking some Denies any abd pain, n/v. Pt states that he was recently in the hospital again d/t severe constipation. Pt has had a colonscopy during his hospitalizations, pt denies any mechanical issues with bowels that seem to be causing the constipation. KAILASH ISAAC NP [address], [place], [address], [place] [facility] 12/28/2019 21:27:36 01/04/2020 text/html Jose is an 79-year-old male with past medical history significant for alcoholism, hypertension, depression, asthma, and prostate cancer status post radical prostatectomy and 2 recent hospitalizations for fecal impaction status post surgical disimpaction. [facility] is [facility] but new to this provider. He presents for concerns of constipation. He states that he has not had a bowel movement since the Tuesday after being seen by [facility] on Tuesday for the same complaint. However he states now he is leaking. He denies any blood or melena. He states that he has resumed his thyroid medication as prescribed. He denies any stomach pain but does have a feeling of fullness. He was able to pass gas. Has a good appetite and is hydrating well. Although he admits to a diet low in fiber. He does take a daily Metamucil supplement. As well as polyethylene glycol and recently prescribed lactulose and mag citrate. He is not on any pain medications. His right within which he has not been using. Denies fever, chills, nausea, vomiting. SARITHA OLIVER [address] [place], [address], [place] [facility] 01/04/2020 17:16:44
== END 2024-12-05 13:29 | disposition home or self-care (01) ==
LOC: HO.HCS 13:03
PROVIDERS: PCP Nurse Practitioner Primary Care; Visit Provider Internal Medicine
DX: R06.00 Dyspnea, unspecified (principal); I77.819 Aortic ectasia, unspecified site
CPT/HCPCS: 93010; 99214

== ENCOUNTER → 2024-12-05 13:02 | Outpatient (BNVA) | payer MEDICARE, SELFPAY | PROVIDERS: PCP Nurse Practitioner Primary Care; Visit Provider Internal Medicine | DX: I45.2 Bifascicular block (principal); I77.819 Aortic ectasia, unspecified site; R06.00 Dyspnea, unspecified; R00.0 Tachycardia, unspecified; R94.31 Abnormal electrocardiogram [ECG] [EKG] | CPT/HCPCS: 93005; 99212 ==

== ENCOUNTER 2025-04-10 10:17 | Outpatient (AMB) | payer MEDICARE, SELFPAY ==
[2025-04-10 10:19] VITALS: BP 100/62; PULSE 103; O2SAT 94; BMI 24.7
--- NOTE | 2025-04-10 10:19 | A.OFFVIS_ITS ---
Vital Signs 04/10/25 10:19 Height 5 ft 11 in Weight 177 lb BMI 24.7 BP 100/62 Blood Pressure Location Lt brachial Position Sitting Pulse 103 H Pulse Source Pulse Oximeter Pulse Oximetry (%) 94 Oxygen Delivery Method Room Air Intake Visit Reasons: Dyspnea Allergies Penicillins Allergy (Severe, Verified 04/10/25 10:22) unknown peanuts Allergy (Severe, Uncoded 04/10/25 10:22) Anaphylaxis HPI HPI Dyspnea: Details: Jose is a pleasant 85 year old male, never smoker, with underlying asthma sin ce childhood, prostate cancer s/p prostatectomy and bilateral orchiectomy 2007, chronic alcoholism in remission since 2020 and h/o SBO s/p colectomy. At the last visit, he was switched from Trelegy to Breztri due to cost of Trelegy however has since discontinued due to cost. He has been using albuterol MDI 3-4 times per day along with nebulized therapy BID with moderate effect. He continues to report dyspnea on exertion, intermittent dry cough and wheezing. He denies any visits to urgent care or hospitalizations since the last visit. [facility] Family History (Updated 10/19/23 @ 10:39 by Bran Guerrero MD) Father No problems noted. Mother No problems noted. Social History Alcohol intake: former Patient Tobacco Use Status: Never used Tobacco Review of Systems Const Denies chills, Denies excessive sweating, Denies fever(s), Denies headache(s) and Denies night sweats Eyes Denies dry eyes, Denies irritation and Denies itchy eyes ENT Reports Normal hearing present, Denies headache(s), Denies nasal congestion, Denies nasal discharge, Denies post nasal drip and Denies sore throat Card Denies chest pain, Denies chest pain at rest, Denies chest pain with activity, D enies claudication, Denies leg edema, Denies orthopnea and Denies paroxysmal nocturnal dyspnea Resp Denies chest congestion, Denies excessive phlegm production, Denies pain on inspiration, Denies pain with cough and Denies stridor Musc Denies myalgias Neuro Reports Normal hearing present and Denies headache(s) Endo Denies excessive sweating Joseph/Lymph Denies lymphadenopathy Aller/Immun Denies itchy eyes and Denies seasonal rhinorrhea Physical Exam Vital Signs: Last Vital Signs Pulse 103 H 04/10/25 10:19 BP 100/62 04/10/25 10:19 Pulse Ox 94 04/10/25 10:19 Oxygen Delivery Method Room Air 04/10/25 10:19 BMI result Body Mass Index 24.7 Const General: cooperative, comfortable, no acute distress, well developed and alert Orientation/consciousness: patient oriented x3 Limitations: no limitations HEENT Head: Yes normal to inspection, Yes normocephalic and Yes atraumatic Ears: hearing grossly normal bilaterally and external ears normal Eyes General: appearance normal, both eyes and all related structures Eyelids: Yes eyelids normal Sclerae: sclerae normal EOM: EOMs intact bilaterally Neck Neck: Yes normal visual inspection and Yes no lymphadenopathy Lymphatic: no lymphadenopathy noted Chest Chest palpation & inspection: normal inspection of the chest Resp Effort & Inspection: normal respiratory effort, able to speak in complete sentences, no audible wheezes, no cough, no stridor, not tachypneic, no tripod positioning and no use of accessory muscles Auscultation: clear to auscultation bilaterally Cardio Jugular venous distension: no JVD Rate: regular rate Rhythm: regular rhythm Skin Other: warm, dry General skin exam: no rashes or lesions noted Neuro General: patient oriented x3 Cranial nerves: Yes Normal hearing present Cognition (Neuro): normal cognition Gait exam (Neuro): Normal gait present Extrem Other: 2+ pitting edema BLE Psych Appearance: grossly normal and well kempt Speech and movement: Normal speech and movement present and Clear speech present Affect: normal affect Attitude: cooperative Thought process: Normal thought process present Thought content: Normal thought content present Insight: Good insight present (Psych) Judgement: Good judgement present (Psych) Assessment & Plan Assessment & Plan (1) Asthma: Code(s): J45.909 - Unspecified asthma, uncomplicated Category: Medical (2) Dyspnea: Code(s): R06.00 - Dyspnea, unspecified Category: Medical (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 May need to add LAMA component. Cautioned patient on overuse of albuterol. Previously prior chest CT revealed marked elevation of the right hemidiaphragm and discussed referral to thoracic surgery to further assess however he continues to decline. All questions were answered and patient is in agreement of plan. Will follow-up in 3 months or sooner if needed. 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
--- OUTSIDE RECORDS SUMMARY | 2025-04-10 12:47 | XMS_ITS | Data Portability ---
Author Organization [place] [facility] Address [address] [place] [address] Care Team Providers Care Estimator Paperboard Boxes Name Role Phone CHARLIE SANTIZO Primary Care Provider [facility] OTHER Assessment Encounter Date Assessment [...] Work up/Results: Plan/Discussion: Patient was transferred to [facility] ED via EMS, expect called. 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 Reports last BM was about [...] I have accessed patient records on the [facility]. This information was pertinent in my medical decision making today. Time On Scene with Patient: 00:24:35 [email or web address] Not available 12/28/2019 21:27:19 01/04/2020 01/04/2020 Overview/History : 79-year-old male with past medical history significant for alcoholism, hypertension, depression, asthma, and prostate cancer status post radical prostatectomy and 2 recent hospitalizations for fecal impaction status post surgical disimpaction. He is known to [facility] but new to this provider. He presents for concerns of constipation. He states that he has not had a bowel movement since the Tuesday after being seen by [facility] on Tuesday for the same complaint. [...] fecal occult blood, stool 2018 019 mike [facility], [address] [place] [address], [id number], 9 14:06:48 Referral None recorded. Procedures None recorded. Surgeries None recorded. Imaging XR, abdomen, 1 view 2019 020 [facility] ([facility]), [address], [place], [address], 0 18:11:15 Medication Orders Senna with Docusate Sodium 8.6 mg-50 mg tablet 2019 020 Not available 0 23:29:56 magnesium citrate oral solution 2019 020 Not available 0 23:29:56 lactulose 10 gram/15 mL oral solution 2019 020 [email or web address] Not available 0 23:29:56 Fleet Enema 19 gram-7 gram/118 mL 2018 019 mike Not available 9 14:06:48 Patient TargetsNo targets recorded. Patient Instructions Encounter Date Encounter Id Patient Instructions Last Modified By Organization Details Last Modified Time 01/25/2019 [id number] Thank you for yo ur visit with [facility] today. We cannot always find the exact [...] in your condition between 8am-10pm, please call [facility] at [phone] to help navigate your care. mike Not available 01/25/2019 14:09:55 10/19/2019 [id number] Thank you for yo ur visit with [facility] today. You were seen today for abdominal [...] in your condition between 8am-10pm, please call [facility] at [phone] to help navigate your care. mike Not available 10/19/2019 18:44:28 12/28/2019 [id number] [facility]. You were seen [...] in your condition between 8am-10pm, please call [facility] at [phone] to help navigate your care. mike Not available 12/28/2019 18:45:14 01/04/2020 [id number] constipation: ca re instructions Not available 01/04/2020 23:29:56 constipation elimination foods [email or web address] Not available 01/04/2020 23:29:56 You may have [...] stool Occult Blood negati ve Not Available [facility] [address], [place], [address], 01/25/2019 13:56:40 01/05/20 20 01/05/2020 XR, abdom [...] LARSON D.O. 020 6:04:0 9 PM EDT. [email or web address] [facility] ([facility]) [address], [place], [address], 01/06/2020 08:32:03 Result Notes Documentation Provider Name [...] EDT. LYNN AVILA NP [address] [place], [address], [place] [facility] 01/06/2020 08:32:03 Problems Name Problem SNOMED Code Status Onset Date Resolution Date Notes Provider Name and Address Organization Details Recorded Time Asthma 778390736 Active 019 KAILASH ISAAC NP [address] [place], [address] , [place] [facility] 9 13:38:46 Asthma 269856530 Active 020 Lev branch, [place] [facility] 0 23:29:55 Problem Notes None recorded. Procedures Surgical History Date Name Laterality Status Provider Name and Address Organization Details Recorded Time 01/04/20 20 Rectal Fecal Disimpaction - completed SARITHA OLIVER [address] [place], [address], [place] [facility] 01/04/2020 14:13:49 04/26/20 19 ECG Interpretation - completed SARITHA DOUGLASS [address], [place], [address], [place] [facility] 04/26/2019 21:46:23 Imaging Results None recorded. Procedure Notes None recorded. Medical Equipment None Reported. Allergies Allergen ID Allergen Name Allergen Category Reaction Reaction Severity Criticality Documentation Date Start Date Code Code System Note Provider Name and Address Organization Details Recorded Time 35233 Product containin g penicilli n (product) medicatio n Not available Not available Not available 01/25/2019 78637 8001 SNOMED KAILASH ISAAC NP [address] [place], [address], [place] [facility] 9 13:38:18 69189 peanut allergeni c extract food,medi cation Not available Not available Not available 04/26/2019 32277 8 RxNorm Lev branch, [place] [facility] 0 23:29:56 72792 Product containin g penicilli n (product) medicatio n Not available Not available Not available 04/26/2019 05002 8001 SNOMED Lev Kumari null, [place] [...] Pulse oximetry Respiratory rate Heart rate Systolic And Diastolic Provider Name and Address Organization Details Last Updated DateTime 0 99 [degF] 90 % 90 % 26 /min 108 /min 140/92 mm[Hg] [facility] 0 23:29:55 Date Recorded Oxygen saturation Oxygen saturation in Arterial blood by Pulse oximetry Heart rate Body temperature Respiratory rate Systolic And Diastolic Provider Name and Address Organization Details Last Updated DateTime 0 93 % 93 % 63 /min 97.9 [degF] 22 /min 108/82 mm[Hg] [facility] 0 23:29:55 Date Recorded Body temperature Oxygen saturation Oxygen saturation in Arterial blood by Pulse oximetry Heart rate Respiratory rate Systolic And Diastolic Provider Name and Address Organization Details Last Updated DateTime 0 98.4 [degF] 95 % 95 % 97 /min 20 /min 108/72 mm[Hg] Lev Kumari [place] [facility] 0 23:29:55 Date Recorded Heart rate Body temperature Respiratory rate Oxygen saturation Oxygen saturation in Arterial blood by Pulse oximetry Systolic And Diastolic Provider Name and Address Organization Details Last Updated DateTime 9 105 /min 97.7 [degF] 17 /min 95 % 95 % 140/78 mm[Hg] Not Available [facility] 9 13:44:47 Date Recorded Respiratory rate Oxygen saturation Oxygen saturation in Arterial blood by Pulse oximetry Heart rate Body temperature Systolic And Diastolic Provider Name and Address Organization Details Last Updated DateTime 9 24 /min 91 % 91 % 112 /min 98.9 [degF] 128/92 mm[Hg] Lev Kumari [place] [facility] 0 23:29:55 Social History Question Answer Notes LastModified by Organizat ion Details LastModified Time Tobacco Smoking Status Never Smoker KAILASH ISAAC, CHUCKY [address], [place], [address], [place] [facility] 01/25/2019 13:40:13 Do You [...] Feel Unsteady When Standing Or Walking? Yes Information not available 01/25/2019 Marital Status Informatio n not available 01/25/2019 What Was [...] e-cigarettes or vape? Never used electronic cigarettes [email or web address] Information not available 01/04/2020 Mental Status None recorded. Family History Relationship Description Onset Age of this Age Resolved Age Notes LastModified by Organization Details LastModified Time Mother Hypertensive disorder [email or web address] Not available 01/25 13:42:12 Mother No current problems or disability [email or web address] Not available 01/03 23:29:55 Father No current problems or disability [email or web address] Not available 01/03 23:29:55 Medical History Condition Response Diabetes N Coronary Artery Disease N Cancer Y Stroke N COPD N Depression Y Asthma Y High Cholesterol N Pulmonary Embolism N Hypertension Y Kidney Disease N Past Encounters Encounter ID Performer Location Encounter Start Date Encounter Closed Date Diagnosis/Indication Diagnosis SNOMED-CT Code Diagnosis ICD10 Code Diagnosis IMO Codes Diagnosis Note [id number] KAILASH ISAAC NP [facility] [address] [place] [address] 01/25/2019 13:36:43 01/25/2019 18:56:26 Constipation 25647766 K59.00 [id number] SARITHA DOUGLASS [facility] [address] [facility] [place] [address] 04/26/2019 20:24:56 04/26/2019 21:51:38 Tachycardia 7081529 R00.0 Abdominal pain 65106221 R10.9 Constipation 48349582 K5 9.00 [id number] KAILASH ISAAC NP [facility] [address] [facility] [place] [address] 10/19/2019 18:43:02 10/22/2019 16:06:14 Constipation 95371776 K59.00 [id number] KAILASH ISAAC NP [facility] [address] [facility] [place] [address] 12/28/2019 18:43:46 12/31/2019 18:05:32 Constipation 83042275 K59.00 Hypothyroidism 42853989 E03.9 [id number] SARITHA OLIVER [facility] [address] [place] [address] 01/04/2020 13:14:43 01/08/2020 14:37:04 Fecal impaction of colon 96047221 K56.41 Constipation 07079711 K5 9.00 Health Concerns Section Related Observation LastModified by Organization Detai ls LastModified Time None Recorded Concern Status LastModified by Organization Details LastModified Time None Recorded Advance Directives Directive Y: Payers Insurance Date Sequence Insurance Name Policy Number Policy Martinez Covered Member ID Martinez Member ID Guarantor Name 01/04/2020 1 *SELF PAY* Jose Jacob [id number] Jose Jacob 05/02/2020 2 WEB-TPA Jose Jacob [id number] Jose Jacob 01/04/2020 1 MEDICARE [place]: [facility] Jose Jacob [id number] Jose Jacob 05/02/2020 1 MEDICARE [place]: [facility] Jose Jacob [id number] Jose Jacob 01/04/2020 1 *SELF PAY* Jose Hong [id number] Jose Jacob 01/04/2020 1 MEDICARE [place]: [facility] Jose Jacob [id number] Jose Jacob 01/04/2020 2 [facility] (MEDICARE SUPPLEMENT) Jose Jacob [id number] Jose Jacob 01/04/2020 2 [facility] (MEDICARE SUPPLEMENT) Jose Jacob [id number] Jose Jacob 05/02/2020 2 [facility] (MEDICARE SUPPLEMENT) Jose Jacob [id number] Jose Jacob 01/04/2020 2 UNSPECIFIED REMIT PAYOR Jose Jaocb 01/04/2020 1 MEDICARE [place]: [facility] Jose Jacob [id number] Jose Jacob Notes Date Note Type Note Provider Name and Address Organization Details Recorded Time 01/25/2019 text/html Pt states he hasn't had a BM [...] this time. KAILASH ISAAC NP [address], [place], [address], [place] [facility] 01/25/2019 14:24:34 04/26/2019 text/html [...] rashes, itching. SARITHA DOUGLASS [address], [place], [address], [place] [facility] 04/26/2019 21:51:36 10/19/2019 text/html Pt states his last BM was about 13 days ago. Pt [...] time. KAILASH ISAAC, CHUCKY [address], [place], [address], [place] [facility] 10/19/2019 19:31:17 12/28/2019 text/html Pt reports that [...] constipation. KAILASH ISAAC NP [address], [place], [address], [place] [facility] 12/28/2019 21:27:36 01/04/2020 text/html Jose is an 79-year-old male with past medical history significant for alcoholism, hypertension, depression, asthma, and prostate cancer status post radical prostatectomy and 2 recent hospitalizations for fecal impaction status post surgical disimpaction. He is known to [facility] but new to this provider. He presents for concerns of constipation. He states that he has not had a bowel movement since the Tuesday after being seen by [facility] on Tuesday for the same complaint. [...] chills, nausea, vomiting. SARITHA OLIVER [address], [place], [address], [place] [facility] 01/04/2020 17:16:44
--- OUTSIDE RECORDS SUMMARY | 2025-04-10 12:47 | XMS_ITS | Clinical Summary ---
[facility] Address [address] [place] [address] Care Team Providers Care Lab Systems Analyst Name Role Phone Unavailable Primary Care Provider [...] series) 2013 Cholesterol Screening (Lipid Panel) 07/12/2023 Falls Risk Assessment 07/12/2023 Social Influencers of Health Screening 07/12/2023 Depression Screening 06/13/2024 COVID-19 Vaccine ( - 2023-2 5 season) 2025 Influenza Vaccine (#1) 2025 HIB Vaccines Aged Out No longer [...]
== END 2025-04-10 10:54 | disposition home or self-care (01) ==
LOC: HO.HPSW 10:18
PROVIDERS: PCP Nurse Practitioner Primary Care; Visit Provider Nurse Practitioner Family
DX: J45.909 Unspecified asthma, uncomplicated (principal); R06.00 Dyspnea, unspecified; J98.6 Disorders of diaphragm
CPT/HCPCS: 99214

== ENCOUNTER → 2025-04-10 10:17 | Outpatient (BNVA) | payer MEDICARE, SELFPAY | PROVIDERS: PCP Nurse Practitioner Primary Care; Visit Provider Nurse Practitioner Family | DX: J45.909 Unspecified asthma, uncomplicated (principal); R06.00 Dyspnea, unspecified; J98.6 Disorders of diaphragm; Z79.899 Other long term (current) drug therapy | CPT/HCPCS: 99212 ==